=== PATIENT | female | born 1945 | race Caucasian/White ===

== ENCOUNTER 2020-08-05 14:14 | Observation (INO) | payer MEDICARE, MEDICAID ==
--- NOTE | 2020-08-05 14:19 | EDM.PDOC ---
ED HPI GENERAL MEDICAL PROBLEM - General Time Seen by Provider: 08/05/20 14:19 Source of Information: Reports: Provider, Other (residential staff member.) History Limitations: Reports: Altered Mental Status (Patient with mental retardation and dementia but also is less responsive and interactive. She cannot provide me with any history.) - History of Present Illness INITIAL COMMENTS - FREE TEXT/NARRATIVE: 74-year-old female who was her usual active and interactive self yesterday with eating and drinking normally, walking normally and interacting with staff normally. Apparently this morning when they got her up to go to breakfast she was more unsteady with her gait which is not too unusual in that she does this on some mornings but then it quickly resolves today did not resolve and she seemed to be less interactive and more flat in her responses. She was able to eat breakfast but had trouble doing so but was able to swallow normally. She continued with the unsteadiness and she was drooping over in her chair which is very unusual for her and did not want to sit up straight. She also was the same for lunch and seemed to be picking at things that were not there as well. She had a telephone visit with Dr. Goncalves and it was felt that the patient needed to come to the emergency department for evaluation. Upon staff, the patient also seemed to be more weak on her left side than her right and she seemed to be sagging over to the left side as well. He seemed to be more sleepy and less verbally responsive and interactive as well. She had denied any pain and denies any pain to me at present. She is on baseline status incontinent of urine. She has had no nasal congestion. She has had no fever or chills noted. She has had a slight cough but this is also chronic. No known exposure to anybody with COVID 19. No known history of trauma. This is all the history that I can obtain. There are no other associated signs or symptoms. There are no other modifying factors. Onset: Today (Upon awakening this morning) Duration: Getting Worse Location: Reports: Other (No pain reported.) Quality: Reports: Other (Not applicable) Improves with: Reports: None Worsens with: Reports: None Context: Reports: Other (As above) Associated Symptoms: Reports: No Other Symptoms (Except as above) Treatments MANAGER GYN: Reports: Other (see below) (Nothing.) - Related Data Allergies Allergy/AdvReac Type Severity Reaction Status Date / Time No Known Allergies Allergy Verified 05/16/18 09:32 Home Meds: Home Meds Acetaminophen [Tylenol Arthritis Pain] 1 tab PO TID 08/05/20 [History] Aspirin [Halfprin] 1 tab PO DAILY 08/05/20 [History] Cholecalciferol (Vitamin D3) [Vitamin D3] 1,000 unit PO DAILY 08/05/20 [History] Donepezil HCl 10 mg PO BEDTIME 08/05/20 [History] Escitalopram Oxalate 5 mg PO DAILY 08/05/20 [History] Memantine HCl [Namenda Xr] 1 cap PO DAILY 08/05/20 [History] Mirtazapine 45 mg PO BEDTIME 08/05/20 [History] Multivits w-Fe,Other Min/Lut [Theratrum Complete] 1 tab PO DAILY 08/05/20 [History] atorvaSTATin [Lipitor] 20 mg PO DAILY 08/05/20 [History] Past Medical History Cardiovascular History: Reports: Heart Valve Replacement (Status post TVAR), High Cholesterol, Hypertension Genitourinary History: Reports: Urinary Incontinence Psychiatric History: Reports: Anxiety, Dementia, Depression, Other (See Below) (Mental retardation) Endocrine/Metabolic History: Reports: Obesity/BMI 30+ - Past Surgical History Cardiovascular Surgical History: Reports: Valve Replacement (TVAR) Social & Family History - Tobacco Use Tobacco Use Status *Q: Never Tobacco User - Alcohol Use Alcohol Use History: No - Living Situation & Occupation Living situation: Reports: Other (In prison area) Occupation: Disabled ED ROS GENERAL - Review of Systems Review Of Systems: Unable To Obtain (The patient is unable to give us this information secondary to her retardation.) Reason Not Obtained: Patient with mental retardation ED EXAM, NEURO - Physical Exam Exam: See Below Exam Limited By: No Limitations General Appearance: Lethargic (Awaken and respond but respond and less animated), Mild Distress (No respiratory distress.), Obese Eye Exam: Bilateral Eye: EOMI, Normal Inspection Ears: Normal External Exam, Hearing Grossly Normal Nose: No Blood, Nasal Drainage Throat/Mouth: Normal Voice, No Airway Compromise, Other (Dry mucous membranes) Head Exam: Atraumatic, Normocephalic Neck: Normal Inspection, Supple, Non-Tender, Full Range of Motion Respiratory/Chest: No Respiratory Distress, Normal Breath Sounds, No Accessory Muscle Use, Chest Non-Tender, Rhonchi (Some rhonchi scattered throughout) Cardiovascular: Normal Peripheral Pulses, Regular Rate, Rhythm, No Gallop GI/Abdominal: Normal Bowel Sounds, Soft, Non-Tender, No Mass, Other (Somewhat protuberant) Neurological: CN II-XII Intact, No Motor/Sensory Deficits, Difficulty Walking, Other (Slow to respond. Less animated. Does seem to move her arms and legs symmetrically.) Back Exam: Normal Inspection Extremities: Normal Inspection, Normal Range of Motion, Non-Tender, Normal Capillary Refill Skin Exam: Warm, Dry, Intact, Normal Color #1 Interpretation EKG Date: 08/05/20 Time: 16:02 Rhythm: NSR Rate (Beats/Min): 74 [place]: Normal P-Wave: Present QRS: Normal ST-T: Other (Nonspecific ST-T changes) QT: Prolonged (Prolonged QTc.) Comparison: NA - No Prior EKG Course - Orders/Labs/Meds Orders: Active Orders 24 hr Category Date Time Status Patient Status Manage Transfer [TRANSFER] Routine ADT 08/05/20 19:20 Active Patient Status [ADT] Routine ADT 08/05/20 19:16 Active Ambulate [RC] PER UNIT ROUTINE Care 08/05/20 19:18 Active EKG Documentation Completion [RC] ASDIRECTED Care 08/05/20 15:05 Active Insert Urinary Catheter [OM.PC] Q24H Care 08/05/20 15:00 Ordered Intake and Output [RC] QSHIFT Care 08/05/20 19:17 Active Oxygen Therapy [RC] PRN Care 08/05/20 19:16 Active Pulse Oximetry [RC] CONTINUOUS Care 08/05/20 19:17 Active Up With Assistance [RC] ASDIRECTED Care 08/05/20 19:16 Active Urinary Catheter Assessment [RC] QSHIFT Care 08/05/20 15:05 Active VTE/DVT Education [RC] Per Unit Routine Care 08/05/20 19:16 Active Vital Signs [RC] Q4H Care 08/05/20 19:16 Active Regular Diet [DIET] Diet 08/05/20 Dinner Ordered Chest 1V Frontal [CR] Stat Exams 08/05/20 15:00 Taken Head wo Cont [CT] Stat Exams 08/05/20 14:18 Taken BASIC METABOLIC PANEL,BMP [CHEM] AM Lab 08/06/20 05:11 Ordered CBC WITH AUTO DIFF [HEME] AM Lab 08/06/20 05:11 Ordered CULTURE BLOOD [BC] Urgent Lab 08/05/20 15:40 Received CULTURE URINE [RM] Stat Lab 08/05/20 15:50 Received Acetaminophen [TylenoL] Med 08/05/20 19:16 Active 650 mg PO Q4H PRN Ondansetron [Zofran] Med 08/05/20 19:16 Active 4 mg IV Q6H PRN Sodium Chloride 0.9% [Normal Saline] 1,000 ml Med 08/05/20 15:15 Active IV ASDIRECTED Sodium Chloride 0.9% [Saline Flush] Med 08/05/20 15:00 Active 10 ml FLUSH ASDIRECTED PRN Blood Culture x2 Reflex Set [OM.PC] Urgent Oth 08/05/20 15:00 Ordered Peripheral IV Insertion Adult [OM.PC] Routine Oth 08/05/20 15:00 Ordered Resuscitation Status Routine Resus Stat 08/05/20 19:16 Ordered EKG 12 Lead [EK] Routine Ther 08/05/20 15:00 Ordered Medication Orders Acetaminophen (Tylenol) 650 mg PO Q4H PRN PRN Reason: Pain (Mild 1-3)/fever Sodium Chloride (Normal Saline) 1,000 mls @ 100 mls/hr IV ASDIRECTED RENE Last Admin: 08/05/20 18:46 Dose: 100 mls/hr Documented by: TIFFANI Ondansetron HCl (Zofran) 4 mg IV Q6H PRN PRN Reason: Nausea/Vomiting Sodium Chloride (Saline Flush) 10 ml FLUSH ASDIRECTED PRN PRN Reason: Keep Vein Open Labs: Laboratory Tests 08/05/20 08/05/20 08/05/20 Range/Units 15:40 15:40 15:40 WBC 5.2 (3.0-10.3) x10-3/uL RBC 4.15 (3.60-5.20) x10(6)uL Hgb 12.8 (11.4-15.5) g/dL Hct 39.0 (34.2-48.2) % MCV 94.0 (76.7-100.5) fL MCH 30.9 (23.9-33.9) pg MCHC 32.8 (31.9-34.8) g/dL RDW 12.8 (12.3-16.5) % Plt Count 149 L (151-488) x10(3)uL MPV 8.3 (7.1-12.4) fL Neut % (Auto) 74.8 (30.8-76.2) % Lymph % (Auto) 11.3 L (18.4-52.1) % [place] % (Auto) 12.9 (4.4-15.7) % Eos % (Auto) 0.1 L (0.6-8.1) % Baso % (Auto) 0.9 (0.2-1.5) % Neut # (Auto) 3.9 (1.5-6.3) x10-3/uL Lymph # (Auto) 0.6 L (1.0-4.4) x10-3/uL [place] # (Auto) 0.7 (0.3-1.0) x10-3/uL Eos # (Auto) 0.0 (0.0-0.8) x10-3/uL Baso # (Auto) 0.0 (0.0-0.1) x10-3/uL POC VBG pH (7.32-7.43) pH Units POC VBG pCO2 (41-51) mmHg POC VBG HCO3 (21-29) mmol/L VBG Base Excess (-2-3) mmol/L O2 Delivery Device Sodium 135 (135-145) mmol/L Potassium 4.4 (3.5-5.3) mmol/L Chloride 97 L (100-110) mmol/L Carbon Dioxide 30 (21-32) mmol/L BUN 30 H (7-18) mg/dL Creatinine 1.2 H (0.55-1.02) mg/dL Est Cr Clr Drug Dosing TNP Estimated GFR (MDRD) 44 L (>60) BUN/Creatinine Ratio 25.0 H (9-20) Glucose 108 (80-116) mg/dL Lactic Acid (0.4-2.0) mmol/L Calcium 8.9 (8.6-10.2) mg/dL Magnesium 1.8 (1.8-2.5) mg/dL Total Bilirubin 0.2 (0.1-1.3) mg/dL AST 46 H (5-25) IU/L ALT 70 H (12-36) U/L Alkaline Phosphatase 97 (56-112) IU/L Troponin I 11.4 (4.0-60.3) pg/mL C-Reactive Protein 1.9 H (0.5-0.9) mg/dL Total Protein 7.3 (6.0-8.0) g/dL Albumin 3.2 (3.2-4.6) g/dL Globulin 4.1 g/dL Albumin/Globulin Ratio 0.8 Urine Color (YELLOW) Urine Appearance (CLEAR) Urine pH (5.0-6.5) Ur Specific [place] (1.010-1.025) Urine Protein (NEGATIVE) mg/dL Urine Glucose (UA) (NORMAL) mg/dL Urine Ketones (NEGATIVE) mg/dL Urine Occult Blood (NEGATIVE) Urine Nitrite (NEGATIVE) Urine Bilirubin (NEGATIVE) Urine Urobilinogen (NEGATIVE) mg/dL Ur Leukocyte Esterase (NEGATIVE) Urine RBC (0-5) Urine WBC (0-5) Ur Squamous Epith Cells (NS,R,O) Urine Bacteria (NS) SARS-CoV-2 RNA (HAROON) (NEGATIVE) 08/05/20 08/05/20 08/05/20 Range/Units 15:40 15:40 15:50 WBC (3.0-10.3) x10-3/uL RBC (3.60-5.20) x10(6)uL Hgb (11.4-15.5) g/dL Hct (34.2-48.2) % MCV (76.7-100.5) fL MCH (23.9-33.9) pg MCHC (31.9-34.8) g/dL RDW (12.3-16.5) % Plt Count (151-488) x10(3)uL MPV (7.1-12.4) fL Neut % (Auto) (30.8-76.2) % Lymph % (Auto) (18.4-52.1) % [place] % (Auto) (4.4-15.7) % Eos % (Auto) (0.6-8.1) % Baso % (Auto) (0.2-1.5) % Neut # (Auto) (1.5-6.3) x10-3/uL Lymph # (Auto) (1.0-4.4) x10-3/uL [place] # (Auto) (0.3-1.0) x10-3/uL Eos # (Auto) (0.0-0.8) x10-3/uL Baso # (Auto) (0.0-0.1) x10-3/uL POC VBG pH 7.37 (7.32-7.43) pH Units POC VBG pCO2 47 (41-51) mmHg POC VBG HCO3 27 (21-29) mmol/L VBG Base Excess 2 (-2-3) mmol/L O2 Delivery Device Room air Sodium (135-145) mmol/L Potassium (3.5-5.3) mmol/L Chloride (100-110) mmol/L Carbon Dioxide (21-32) mmol/L BUN (7-18) mg/dL Creatinine (0.55-1.02) mg/dL Est Cr Clr Drug Dosing Estimated GFR (MDRD) (>60) BUN/Creatinine Ratio (9-20) Glucose (80-116) mg/dL Lactic Acid 1.3 (0.4-2.0) mmol/L Calcium (8.6-10.2) mg/dL Magnesium (1.8-2.5) mg/dL Total Bilirubin (0.1-1.3) mg/dL AST (5-25) IU/L ALT (12-36) U/L Alkaline Phosphatase (56-112) IU/L Troponin I (4.0-60.3) pg/mL C-Reactive Protein (0.5-0.9) mg/dL Total Protein (6.0-8.0) g/dL Albumin (3.2-4.6) g/dL Globulin g/dL Albumin/Globulin Ratio Urine Color Yellow (YELLOW) Urine Appearance Clear (CLEAR) Urine pH 5.0 (5.0-6.5) Ur Specific [place] 1.015 (1.010-1.025) Urine Protein Negative (NEGATIVE) mg/dL Urine Glucose (UA) Normal (NORMAL) mg/dL Urine Ketones Negative (NEGATIVE) mg/dL Urine Occult Blood Moderate H (NEGATIVE) Urine Nitrite Negative (NEGATIVE) Urine Bilirubin Negative (NEGATIVE) Urine Urobilinogen Normal (NEGATIVE) mg/dL Ur Leukocyte Esterase Negative (NEGATIVE) Urine RBC 5-10 H (0-5) Urine WBC 0-5 (0-5) Ur Squamous Epith Cells Rare (NS,R,O) Urine Bacteria Few H (NS) SARS-CoV-2 RNA (HAROON) (NEGATIVE) 08/05/20 Range/Units 17:15 WBC (3.0-10.3) x10-3/uL RBC (3.60-5.20) x10(6)uL Hgb (11.4-15.5) g/dL Hct (34.2-48.2) % MCV (76.7-100.5) fL MCH (23.9-33.9) pg MCHC (31.9-34.8) g/dL RDW (12.3-16.5) % Plt Count (151-488) x10(3)uL MPV (7.1-12.4) fL Neut % (Auto) (30.8-76.2) % Lymph % (Auto) (18.4-52.1) % [place] % (Auto) (4.4-15.7) % Eos % (Auto) (0.6-8.1) % Baso % (Auto) (0.2-1.5) % Neut # (Auto) (1.5-6.3) x10-3/uL Lymph # (Auto) (1.0-4.4) x10-3/uL [place] # (Auto) (0.3-1.0) x10-3/uL Eos # (Auto) (0.0-0.8) x10-3/uL Baso # (Auto) (0.0-0.1) x10-3/uL POC VBG pH (7.32-7.43) pH Units POC VBG pCO2 (41-51) mmHg POC VBG HCO3 (21-29) mmol/L VBG Base Excess (-2-3) mmol/L O2 Delivery Device Sodium (135-145) mmol/L Potassium (3.5-5.3) mmol/L Chloride (100-110) mmol/L Carbon Dioxide (21-32) mmol/L BUN (7-18) mg/dL Creatinine (0.55-1.02) mg/dL Est Cr Clr Drug Dosing Estimated GFR (MDRD) (>60) BUN/Creatinine Ratio (9-20) Glucose (80-116) mg/dL Lactic Acid (0.4-2.0) mmol/L Calcium (8.6-10.2) mg/dL Magnesium (1.8-2.5) mg/dL Total Bilirubin (0.1-1.3) mg/dL AST (5-25) IU/L ALT (12-36) U/L Alkaline Phosphatase (56-112) IU/L Troponin I (4.0-60.3) pg/mL C-Reactive Protein (0.5-0.9) mg/dL Total Protein (6.0-8.0) g/dL Albumin (3.2-4.6) g/dL Globulin g/dL Albumin/Globulin Ratio Urine Color (YELLOW) Urine Appearance (CLEAR) Urine pH (5.0-6.5) Ur Specific [place] (1.010-1.025) Urine Protein (NEGATIVE) mg/dL Urine Glucose (UA) (NORMAL) mg/dL Urine Ketones (NEGATIVE) mg/dL Urine Occult Blood (NEGATIVE) Urine Nitrite (NEGATIVE) Urine Bilirubin (NEGATIVE) Urine Urobilinogen (NEGATIVE) mg/dL Ur Leukocyte Esterase (NEGATIVE) Urine RBC (0-5) Urine WBC (0-5) Ur Squamous Epith Cells (NS,R,O) Urine Bacteria (NS) SARS-CoV-2 RNA (HAROON) Positive H (NEGATIVE) Meds: Medications Generic Name Dose Route Start Last Admin Trade Name Freq PRN Reason Stop Dose Admin Acetaminophen 650 mg 08/05/20 19:16 Tylenol PO Q4H PRN Pain (Mild 1-3)/fever Sodium Chloride 1,000 mls @ 100 mls/hr 08/05/20 15:15 08/05/20 18:46 Normal Saline IV 100 mls/hr ASDIRECTED RENE Administration Ondansetron HCl 4 mg 08/05/20 19:16 Zofran IV Q6H PRN Nausea/Vomiting Sodium Chloride 10 ml 08/05/20 15:00 Saline Flush FLUSH ASDIRECTED PRN Keep Vein Open Discontinued Medications Generic Name Dose Route Start Last Admin Trade Name Freq PRN Reason Stop Dose Admin Sodium Chloride 500 mls @ 999 mls/hr 08/05/20 15:07 08/05/20 17:15 Normal Saline IV 08/05/20 15:37 999 mls/hr .BOLUS ONE Administration - Radiology Interpretation Free Text/Narrative:: Portable chest x-ray shows possible right bilaterally with right greater than left. CT scan of head showed no acute abnormality. This was per the radiologist. - Re-Assessments/Exams Free Text/Narrative Re-Assessment/Exam: 08/05/20 15:30: The patient's blood tests are reassuring. She does appear to be somewhat dehydrated. The CT scan of her head shows no evidence of stroke or bleeding. The chest x-ray does show some bilateral infiltrates. The Covid 19 test is not back yet. They have not been able to establish an IV and she had as well. The EKG is still pending as well. The patient does appear to be somewhat dehydrated and the nursing staff his attempting to start an IV. The patient remains quite lethargic and non-animated. She still does not have any focal findings on my exam. Even with the negative head CT, I am somewhat concerned about a potential stroke not visualized on the CT scan. 08/05/20 16:40: We will have to get anesthesia to attempt to start an IV. The COVID test is still pending. Her urinalysis shows no evidence of infection. EKG showed no injury pattern. I did discuss the patient's case with Dr. Perdomo and he would be agreeable to admitting the patient. The patient is a DNR. No agg ressive measures would be warranted. I discussed this with the prison staff and she would be agreeable to this. 08/05/20 18:00: The patient has received a liter bolus of IV fluids and she is much more animated. She is moving all 4 extremities well. She is able to emulate to the bathroom. She has eaten some Jell-O without any problems and is loudly asking for more. She still is somewhat weak and required assistance. We are still awaiting the Covid test. 08/05/20 19:00: Her COVID 19 test is positive. She remains a normal O2 saturation and stable vital signs. The prison staff tells me that they would not be able to take the patient back tonight. The patient does appear to be dehydrated and I think would benefit from IV fluid hydration. I will admit the patient as an observation for this. She still had the strokelike symptoms which have appeared to resolve and will need to be observed for this as well. I will place admission orders and Dr. Perdomo will send care the patient at 7 AM on 08/06/2020. Departure - Departure Time of Disposition: 19:16 Disposition: Refer to Observation Condition: Fair (Stable) Clinical Impression: Stroke-like symptoms, Dehydration, moderate, Pneumonia due to COVID-19 virus - Discharge Information Referrals: PCP,None [Ordering Only Provider] - - My Orders Last 24 Hours: My Active Orders 08/05/20 14:18 Head wo Cont [CT] Stat 08/05/20 15:00 Insert Urinary Catheter [OM.PC] Q24H Chest 1V Frontal [CR] Stat Sodium Chloride 0.9% [Saline Flush] 10 ml FLUSH ASDIRECTED PRN Blood Culture x2 Reflex Set [OM.PC] Urgent Peripheral IV Insertion Adult [OM.PC] Routine EKG 12 Lead [EK] Routine 08/05/20 15:05 EKG Documentation Completion [RC] ASDIRECTED Urinary Catheter Assessment [RC] QSHIFT 08/05/20 15:15 Sodium Chloride 0.9% [Normal Saline] 1,000 ml IV ASDIRECTED 08/05/20 15:40 CULTURE BLOOD [BC] Urgent 08/05/20 15:50 CULTURE URINE [RM] Stat 08/05/20 Dinner Regular Diet [DIET] 08/05/20 19:16 Patient Status [ADT] Routine Oxygen Therapy [RC] PRN Up With Assistance [RC] ASDIRECTED VTE/DVT Education [RC] Per Unit Routine Vital Signs [RC] Q4H Acetaminophen [TylenoL] 650 mg PO Q4H PRN Ondansetron [Zofran] 4 mg IV Q6H PRN Resuscitation Status Routine 08/05/20 19:17 Intake and Output [RC] QSHIFT Pulse Oximetry [RC] CONTINUOUS 08/05/20 19:18 Ambulate [RC] PER UNIT ROUTINE 08/05/20 19:20 Patient Status Manage Transfer [TRANSFER] Routine 08/06/20 05:11 BASIC METABOLIC PANEL,BMP [CHEM] AM CBC WITH AUTO DIFF [HEME] AM - Assessment/Plan Last 24 Hours: My Active Orders 08/05/20 14:18 Head wo Cont [CT] Stat 08/05/20 15:00 Insert Urinary Catheter [OM.PC] Q24H Chest 1V Frontal [CR] Stat Sodium Chloride 0.9% [Saline Flush] 10 ml FLUSH ASDIRECTED PRN Blood Culture x2 Reflex Set [OM.PC] Urgent Peripheral IV Insertion Adult [OM.PC] Routine EKG 12 Lead [EK] Routine 08/05/20 15:05 EKG Documentation Completion [RC] ASDIRECTED Urinary Catheter Assessment [RC] QSHIFT 08/05/20 15:15 Sodium Chloride 0.9% [Normal Saline] 1,000 ml IV ASDIRECTED 08/05/20 15:40 CULTURE BLOOD [BC] Urgent 08/05/20 15:50 CULTURE URINE [RM] Stat 08/05/20 Dinner Regular Diet [DIET] 08/05/20 19:16 Patient Status [ADT] Routine Oxygen Therapy [RC] PRN Up With Assistance [RC] ASDIRECTED VTE/DVT Education [RC] Per Unit Routine Vital Signs [RC] Q4H Acetaminophen [TylenoL] 650 mg PO Q4H PRN Ondansetron [Zofran] 4 mg IV Q6H PRN Resuscitation Status Routine 08/05/20 19:17 Intake and Output [RC] QSHIFT Pulse Oximetry [RC] CONTINUOUS 08/05/20 19:18 Ambulate [RC] PER UNIT ROUTINE 08/05/20 19:20 Patient Status Manage Transfer [TRANSFER] Routine 08/06/20 05:11 BASIC METABOLIC PANEL,BMP [CHEM] AM CBC WITH AUTO DIFF [HEME] AM
[2020-08-05] MEDS ORDERED: Sodium Chloride 0.9% 10 ML Syringe FLUSH PRN (15:00)
[2020-08-05] MEDS ORDERED: Sodium Chloride 0.9% 500 ML IV ONE (15:07)
[2020-08-05 16:02] LABS: BASE EXCESS VENOUS,POC 2 mmol/L (-2-3); HCO3 VENOUS,POC 27 mmol/L (21-29); PCO2 VENOUS,POC 47 mmHg (41-51); PH VENOUS,POC 7.37 pH Units (7.32-7.43)
--- NOTE | 2020-08-05 17:03 | PCM.SN.2 ---
- Free Text/Narrative Note: Was called to ER to start an IV on a patient who has had multiple attempts without success. After two attempts an IV was started in her right hand and this was with a 22 jelco. IV flushed well with 20cc's of saline. IV was secured well.
[2020-08-05] MEDS: Sodium Chloride 0.9% 1,000 ML IV SCH (18:46)
[2020-08-05] MEDS ORDERED: Acetaminophen 325 MG Tab PO PRN (19:16)
[2020-08-05] MEDS ORDERED: Ondansetron 4 MG/2 ML SDV IV PRN (19:16)
[2020-08-06] MEDS: Sodium Chloride 0.9% 1,000 ML IV SCH (06:15)
[2020-08-06] MEDS ORDERED: BUDESONIDE 3 MG PO SCH (09:00)
[2020-08-06] MEDS ORDERED: Aspirin 81 MG Tab.EC *PTOM PO SCH (09:00)
[2020-08-06] MEDS ORDERED: Multivitamin Tab *PTOM PO SCH (09:00)
[2020-08-06] MEDS ORDERED: Cholecalciferol (Vitamin D3) 25 MCG Tab *PTOM PO SCH (09:00)
[2020-08-06] MEDS ORDERED: atorvaSTATin 20 MG Tab *PTOM PO SCH (09:00)
[2020-08-06] MEDS ORDERED: MEMANTINE HCL 21 MG PO SCH (09:00)
[2020-08-06] MEDS ORDERED: FERROUS SULFATE 160 MG PO SCH (09:00)
[2020-08-06] MEDS ORDERED: DEXTROSE PO PRN (09:17)
[2020-08-06] MEDS ORDERED: diphenhydrAMINE 25 MG Cap PO PRN (09:17)
[2020-08-06] MEDS ORDERED: [UNRECOGNIZED DRUG - OTHER] PO PRN (09:17)
[2020-08-06] MEDS ORDERED: [UNRECOGNIZED DRUG - OTHER] PO PRN (09:17)
[2020-08-06] MEDS ORDERED: QUEtiapine 25 MG Tab PO PRN (09:17)
[2020-08-06] MEDS ORDERED: Acetaminophen 650 MG Tab.ER *PTOM PO PRN (09:17)
--- NOTE | 2020-08-06 09:24 | PCM.HP.2 ---
H&P History of Present Illness - General Date of Service: 08/06/20 Admit Problem/Dx: Admission Diagnosis/Problem Admission Diagnosis/Problem Dehydration Source of Information: Old Records, Provider, RN History Limitations: Reports: Altered Mental Status - History of Present Illness Initial Comments - Free Text/Narative: Isabella was brought from a local halfway due to generalized weakness of sudden onset.She has Mental Delay,but is usually interactive and independent,. Was noted to need support,decreased interaction and less appetite. At the ED,mild dehydration was entertained,but was found to have COVID 19.Curiously,she didn't exhibit any respiratory symptoms of fever. - Related Data Allergies/Adverse Reactions: Allergies Allergy/AdvReac Type Severity Reaction Status Date / Time No Known Allergies Allergy Verified 05/16/18 09:32 Home Medications: Home Meds Aspirin [Halfprin] 81 mg PO DAILY 08/05/20 [History] Cholecalciferol (Vitamin D3) [Vitamin D3] 1,000 unit PO DAILY 08/05/20 [History] Donepezil HCl 10 mg PO BEDTIME 08/05/20 [History] Escitalopram Oxalate 5 mg PO DAILY 08/05/20 [History] Memantine HCl [Namenda Xr] 21 mg PO DAILY 08/05/20 [History] Mirtazapine 45 mg PO BEDTIME 08/05/20 [History] Multivits w-Fe,Other Min/Lut [Theratrum Complete] 1 tab PO DAILY 08/05/20 [Histo ry] atorvaSTATin [Lipitor] 20 mg PO DAILY 08/05/20 [History] Acetaminophen [Acetaminophen ER] 650 mg PO Q8H PRN 08/06/20 [History] Budesonide [Budesonide EC] 9 mg PO DAILY 08/06/20 [History] Chlorpheniramine/Dextromethorp [Coricidin Hbp Cough & Cold] 1 each PO Q6H PRN 08/06/20 [History] Dextrose [Glucose] 8 gm PO ASDIRECTED PRN 08/06/20 [History] Ferrous Sulfate [Slow Release Iron] 160 mg PO DAILY 08/06/20 [History] QUEtiapine [SEROquel] 6.25 mg PO DAILY PRN 08/06/20 [History] diphenhydrAMINE [Benadryl] 50 mg PO Q6H PRN 08/06/20 [History] lisinopriL [Lisinopril] 2.5 mg PO BEDTIME 08/06/20 [History] polyethylene glycoL 3350 [Gavilax] 17 gm PO DAILY 08/06/20 [History] Past Medical History HEENT History: Reports: Cataract Cardiovascular History: Reports: Heart Valve Replacement, High Cholesterol, Hypertension Genitourinary History: Reports: Urinary Incontinence Neurological History: Reports: Other (See Below) Other Neuro History: mild mental retardation Psychiatric History: Reports: Anxiety, Dementia, Depression, Other (See Below) Endocrine/Metabolic History: Reports: Obesity/BMI 30+ - Past Surgical History Cardiovascular Surgical History: Reports: Valve Replacement Other Musculoskeletal Surgeries/Procedures:: knee surgery to left knee and now unable to bend Social & Family History - Family History Family Medical History: No Pertinent Family History - Tobacco Use Tobacco Use Status *Q: Never Tobacco User - Caffeine Use Caffeine Use: Reports: None - Recreational Drug Use Recreational Drug Use: No - Living Situation & Occupation Living situation: Reports: Other (In halfway area) Occupation: Disabled H&P Review of Systems - Review of Systems: Review Of Systems: Comprehensive ROS is negative, except as noted in HPI. Exam - Exam Exam: See Below - Vital Signs Vital Signs: Last Vital Signs Temp 98.3 F 08/06/20 07:49 Pulse 76 08/06/20 07:49 Resp 20 08/06/20 07:49 BP 157/82 H 08/06/20 07:49 Pulse Ox 99 08/06/20 07:49 Weight: 79.52 kg - Exam General: Alert HEENT: PERRLA Lungs: Crackles Cardiovascular: Regular Rate GI/Abdominal Exam: Normal Bowel Sounds, Soft Extremities: Normal Inspection, No Pedal Edema Neurological: Cranial Nerves Intact Neuro Extensive - Mental Status: Alert Psychiatric: Alert - Patient Data Lab Results Last 24 hrs: Laboratory Results - last 24 hr 08/05/20 08/05/20 08/05/20 Range/Units 15:40 15:40 15:40 WBC 5.2 (3.0-10.3) x10-3/uL RBC 4.15 (3.60-5.20) x10(6)uL Hgb 12.8 (11.4-15.5) g/dL Hct 39.0 (34.2-48.2) % MCV 94.0 (76.7-100.5) fL MCH 30.9 (23.9-33.9) pg MCHC 32.8 (31.9-34.8) g/dL RDW 12.8 (12.3-16.5) % Plt Count 149 L (151-488) x10(3)uL MPV 8.3 (7.1-12.4) fL Neut % (Auto) 74.8 (30.8-76.2) % Lymph % (Auto) 11.3 L (18.4-52.1) % Luce % (Auto) 12.9 (4.4-15.7) % Eos % (Auto) 0.1 L (0.6-8.1) % Baso % (Auto) 0.9 (0.2-1.5) % Neut # (Auto) 3.9 (1.5-6.3) x10-3/uL Lymph # (Auto) 0.6 L (1.0-4.4) x10-3/uL Luce # (Auto) 0.7 (0.3-1.0) x10-3/uL Eos # (Auto) 0.0 (0.0-0.8) x10-3/uL Baso # (Auto) 0.0 (0.0-0.1) x10-3/uL POC VBG pH (7.32-7.43) pH Units POC VBG pCO2 (41-51) mmHg POC VBG HCO3 (21-29) mmol/L VBG Base Excess (-2-3) mmol/L O2 Delivery Device Sodium 135 (135-145) mmol/L Potassium 4.4 (3.5-5.3) mmol/L Chloride 97 L (100-110) mmol/L Carbon Dioxide 30 (21-32) mmol/L BUN 30 H (7-18) mg/dL Creatinine 1.2 H (0.55-1.02) mg/dL Est Cr Clr Drug Dosing TNP Estimated GFR (MDRD) 44 L (>60) BUN/Creatinine Ratio 25.0 H (9-20) Glucose 108 (80-116) mg/dL Lactic Acid (0.4-2.0) mmol/L Calcium 8.9 (8.6-10.2) mg/dL Magnesium 1.8 (1.8-2.5) mg/dL Total Bilirubin 0.2 (0.1-1.3) mg/dL AST 46 H (5-25) IU/L ALT 70 H (12-36) U/L Alkaline Phosphatase 97 (56-112) IU/L Troponin I 11.4 (4.0-60.3) pg/mL C-Reactive Protein 1.9 H (0.5-0.9) mg/dL Total Protein 7.3 (6.0-8.0) g/dL Albumin 3.2 (3.2-4.6) g/dL Globulin 4.1 g/dL Albumin/Globulin Ratio 0.8 Urine Color (YELLOW) Urine Appearance (CLEAR) Urine pH (5.0-6.5) Ur Specific [place] (1.010-1.025) Urine Protein (NEGATIVE) mg/dL Urine Glucose (UA) (NORMAL) mg/dL Urine Ketones (NEGATIVE) mg/dL Urine Occult Blood (NEGATIVE) Urine Nitrite (NEGATIVE) Urine Bilirubin (NEGATIVE) Urine Urobilinogen (NEGATIVE) mg/dL Ur Leukocyte Esterase (NEGATIVE) Urine RBC (0-5) Urine WBC (0-5) Ur Squamous Epith Cells (NS,R,O) Urine Bacteria (NS) SARS-CoV-2 RNA (HAROON) (NEGATIVE) 08/05/20 08/05/20 08/05/20 Range/Units 15:40 15:40 15:50 WBC (3.0-10.3) x10-3/uL RBC (3.60-5.20) x10(6)uL Hgb (11.4-15.5) g/dL Hct (34.2-48.2) % MCV (76.7-100.5) fL MCH (23.9-33.9) pg MCHC (31.9-34.8) g/dL RDW (12.3-16.5) % Plt Count (151-488) x10(3)uL MPV (7.1-12.4) fL Neut % (Auto) (30.8-76.2) % Lymph % (Auto) (18.4-52.1) % Luce % (Auto) (4.4-15.7) % Eos % (Auto) (0.6-8.1) % Baso % (Auto) (0.2-1.5) % Neut # (Auto) (1.5-6.3) x10-3/uL Lymph # (Auto) (1.0-4.4) x10-3/uL Luce # (Auto) (0.3-1.0) x10-3/uL Eos # (Auto) (0.0-0.8) x10-3/uL Baso # (Auto) (0.0-0.1) x10-3/uL POC VBG pH 7.37 (7.32-7.43) pH Units POC VBG pCO2 47 (41-51) mmHg POC VBG HCO3 27 (21-29) mmol/L VBG Base Excess 2 (-2-3) mmol/L O2 Delivery Device Room air Sodium (135-145) mmol/L Potassium (3.5-5.3) mmol/L Chloride (100-110) mmol/L Carbon Dioxide (21-32) mmol/L BUN (7-18) mg/dL Creatinine (0.55-1.02) mg/dL Est Cr Clr Drug Dosing Estimated GFR (MDRD) (>60) BUN/Creatinine Ratio (9-20) Glucose (80-116) mg/dL Lactic Acid 1.3 (0.4-2.0) mmol/L Calcium (8.6-10.2) mg/dL Magnesium (1.8-2.5) mg/dL Total Bilirubin (0.1-1.3) mg/dL AST (5-25) IU/L ALT (12-36) U/L Alkaline Phosphatase (56-112) IU/L Troponin I (4.0-60.3) pg/mL C-Reactive Protein (0.5-0.9) mg/dL Total Protein (6.0-8.0) g/dL Albumin (3.2-4.6) g/dL Globulin g/dL Albumin/Globulin Ratio Urine Color Yellow (YELLOW) Urine Appearance Clear (CLEAR) Urine pH 5.0 (5.0-6.5) Ur Specific [place] 1.015 (1.010-1.025) Urine Protein Negative (NEGATIVE) mg/dL Urine Glucose (UA) Normal (NORMAL) mg/dL Urine Ketones Negative (NEGATIVE) mg/dL Urine Occult Blood Moderate H (NEGATIVE) Urine Nitrite Negative (NEGATIVE) Urine Bilirubin Negative (NEGATIVE) Urine Urobilinogen Normal (NEGATIVE) mg/dL Ur Leukocyte Esterase Negative (NEGATIVE) Urine RBC 5-10 H (0-5) Urine WBC 0-5 (0-5) Ur Squamous Epith Cells Rare (NS,R,O) Urine Bacteria Few H (NS) SARS-CoV-2 RNA (HAROON) (NEGATIVE) 08/05/20 Range/Units 17:15 WBC (3.0-10.3) x10-3/uL RBC (3.60-5.20) x10(6)uL Hgb (11.4-15.5) g/dL Hct (34.2-48.2) % MCV (76.7-100.5) fL MCH (23.9-33.9) pg MCHC (31.9-34.8) g/dL RDW (12.3-16.5) % Plt Count (151-488) x10(3)uL MPV (7.1-12.4) fL Neut % (Auto) (30.8-76.2) % Lymph % (Auto) (18.4-52.1) % Luce % (Auto) (4.4-15.7) % Eos % (Auto) (0.6-8.1) % Baso % (Auto) (0.2-1.5) % Neut # (Auto) (1.5-6.3) x10-3/uL Lymph # (Auto) (1.0-4.4) x10-3/uL Luce # (Auto) (0.3-1.0) x10-3/uL Eos # (Auto) (0.0-0.8) x10-3/uL Baso # (Auto) (0.0-0.1) x10-3/uL POC VBG pH (7.32-7.43) pH Units POC VBG pCO2 (41-51) mmHg POC VBG HCO3 (21-29) mmol/L VBG Base Excess (-2-3) mmol/L O2 Delivery Device Sodium (135-145) mmol/L Potassium (3.5-5.3) mmol/L Chloride (100-110) mmol/L Carbon Dioxide (21-32) mmol/L BUN (7-18) mg/dL Creatinine (0.55-1.02) mg/dL Est Cr Clr Drug Dosing Estimated GFR (MDRD) (>60) BUN/Creatinine Ratio (9-20) Glucose (80-116) mg/dL Lactic Acid (0.4-2.0) mmol/L Calcium (8.6-10.2) mg/dL Magnesium (1.8-2.5) mg/dL Total Bilirubin (0.1-1.3) mg/dL AST (5-25) IU/L ALT (12-36) U/L Alkaline Phosphatase (56-112) IU/L Troponin I (4.0-60.3) pg/mL C-Reactive Protein (0.5-0.9) mg/dL Total Protein (6.0-8.0) g/dL Albumin (3.2-4.6) g/dL Globulin g/dL Albumin/Globulin Ratio Urine Color (YELLOW) Urine Appearance (CLEAR) Urine pH (5.0-6.5) Ur Specific [place] (1.010-1.025) Urine Protein (NEGATIVE) mg/dL Urine Glucose (UA) (NORMAL) mg/dL Urine Ketones (NEGATIVE) mg/dL Urine Occult Blood (NEGATIVE) Urine Nitrite (NEGATIVE) Urine Bilirubin (NEGATIVE) Urine Urobilinogen (NEGATIVE) mg/dL Ur Leukocyte Esterase (NEGATIVE) Urine RBC (0-5) Urine WBC (0-5) Ur Squamous Epith Cells (NS,R,O) Urine Bacteria (NS) SARS-CoV-2 RNA (HAROON) Positive H (NEGATIVE) Result Diagrams: 08/05/20 15:40 08/05/20 15:40 Sepsis Event Note - Evaluation Sepsis Screening Result: No Definite Risk - Focused Exam Vital Signs: Vital Signs Temp Pulse Resp BP Pulse Ox 08/06/20 07:49 98.3 F 76 20 157/82 H 99 08/06/20 06:12 97.6 F 75 18 132/80 95 - Problem List (1) Pneumonia due to COVID-19 virus SNOMED Code(s): 521147771110378753 ICD Code: U07.1 - COVID-19; J12.89 - OTHER VIRAL PNEUMONIA Status: Acute Current Visit: Yes (2) Dehydration, moderate SNOMED Code(s): 7388859896123 ICD Code: E86.0 - DEHYDRATION Status: Acute Current Visit: Yes (3) Developmental delay, mild SNOMED Code(s): 364982491 ICD Code: R62.50 - UNSP LACK OF EXPECTED NORMAL PHYSIOL DEV IN CHILDHOOD Status: Acute Current Visit: Yes Problem List Initiated/Reviewed/Updated: Yes Orders Last 24hrs: Active Orders 24 hr Category Date Time Status Patient Status [ADT] Routine ADT 08/05/20 19:16 Active Consistent Carbohydrate Diet [DIET] Diet 08/06/20 Lunch Active Chest 1V Frontal [CR] Stat Exams 08/05/20 15:00 Taken Head wo Cont [CT] Stat Exams 08/05/20 14:18 Taken BASIC METABOLIC PANEL,BMP [CHEM] Stat Lab 08/06/20 08:19 Ordered CBC WITH AUTO DIFF [HEME] Stat Lab 08/06/20 08:19 Ordered CULTURE BLOOD [BC] Urgent Lab 08/05/20 15:40 Received CULTURE URINE [RM] Stat Lab 08/05/20 15:50 Received Acetaminophen [TylenoL] Med 08/05/20 19:16 Active 650 mg PO Q4H PRN Acetaminophen [Tylenol Arthritis Pain] Med 08/06/20 09:17 Ordered 650 mg PO Q8H PRN Aspirin [Halfprin] Med 08/07/20 09:00 Ordered 81 mg PO DAILY Budesonide [Entocort EC] Med 08/07/20 09:00 Ordered 9 mg PO DAILY Chlorpheniramine/Dextromethorp [Coricidin Hbp Cough & Med 08/06/20 09:17 Ordered Cold] 1 each PO Q6H PRN Cholecalciferol (Vitamin D3) [Vitamin D3] Med 08/07/20 09:00 Ordered 1,000 unit PO DAILY Dextrose [Glucose] Med 08/06/20 09:17 Ordered 8 gm PO ASDIRECTED PRN Donepezil [Aricept] Med 08/06/20 21:00 Ordered 10 mg PO BEDTIME Escitalopram Oxalate [Escitalopram Oxalate] Med 08/07/20 09:00 Ordered 5 mg PO DAILY Ferrous Sulfate [Slow Release Iron] Med 08/07/20 09:00 Ordered 160 mg PO DAILY Memantine HCl [Namenda Xr] Med 08/07/20 09:00 Ordered 21 mg PO DAILY Mirtazapine [Mirtazapine] Med 08/06/20 21:00 Ordered 45 mg PO BEDTIME Multivits w-Fe,Other Min/Lut [Theratrum Complete] Med 08/07/20 09:00 Ordered 1 tab PO DAILY Ondansetron [Zofran] Med 08/05/20 19:16 Active 4 mg IV Q6H PRN QUEtiapine [SEROqueL] Med 08/06/20 09:17 Ordered 6.25 mg PO DAILY PRN Sodium Chloride 0.9% [Normal Saline] 1,000 ml Med 08/05/20 15:15 Active IV ASDIRECTED Sodium Chloride 0.9% [Saline Flush] Med 08/05/20 15:00 Active 10 ml FLUSH ASDIRECTED PRN atorvaSTATin [Lipitor] Med 08/07/20 09:00 Ordered 20 mg PO DAILY diphenhydrAMINE [Benadryl] Med 08/06/20 09:17 Ordered 50 mg PO Q6H PRN lisinopriL [Prinivil] Med 08/06/20 21:00 Ordered 2.5 mg PO BEDTIME polyethylene glycoL 3350 [MiraLAX] Med 08/07/20 09:00 Ordered 17 gm PO DAILY Blood Culture x2 Reflex Set [OM.PC] Urgent Oth 08/05/20 15:00 Ordered Peripheral IV Insertion Adult [OM.PC] Routine Oth 08/05/20 15:00 Ordered Resuscitation Status Routine Resus Stat 08/05/20 19:16 Ordered EKG 12 Lead [EK] Routine Ther 08/05/20 15:00 Ordered Medication Orders Acetaminophen (Tylenol) 650 mg PO Q4H PRN PRN Reason: Pain (Mild 1-3)/fever Acetaminophen (Tylenol Arthritis Pain) 650 mg PO Q8H PRN PRN Reason: Pain/Fever Aspirin (Halfprin) 81 mg PO DAILY RENE Atorvastatin Calcium (Lipitor) 20 mg PO DAILY RENE Budesonide (Entocort Ec) 9 mg PO DAILY RENE Diphenhydramine HCl (Benadryl) 50 mg PO Q6H PRN PRN Reason: Allergies Donepezil HCl (Aricept) 10 mg PO BEDTIME RENE Sodium Chloride (Normal Saline) 1,000 mls @ 100 mls/hr IV ASDIRECTED RENE Last Admin: 08/06/20 06:15 Dose: 100 mls/hr Documented by: Infusion: 08/06/20 04:46 Dose: 100 mls/hr Documented by: Admin: 08/05/20 18:46 Dose: 100 mls/hr Documented by: TIFFANI Lisinopril (Prinivil) 2.5 mg PO BEDTIME RENE Non-Formulary Medication (Chlorpheniramine/Dextromethorp [Coricidin Hbp Cough & Cold]) 1 each PO Q6H PRN PRN Reason: Congestion Non-Formulary Medication (Cholecalciferol (Vitamin D3) [Vitamin D3]) 1,000 unit PO DAILY RENE Non-Formulary Medication (Dextrose [Glucose]) 8 gm PO ASDIRECTED PRN PRN Reason: LOW BLOOD SUGAR Non-Formulary Medication (Escitalopram Oxalate [Escitalopram Oxalate]) 5 mg PO DAILY RENE Non-Formulary Medication (Ferrous Sulfate [Slow Release Iron]) 160 mg PO DAILY RENE Non-Formulary Medication (Memantine Hcl [Namenda Xr]) 21 mg PO DAILY RENE Non-Formulary Medication (Mirtazapine [Mirtazapine]) 45 mg PO BEDTIME RENE Non-Formulary Medication (Multivits W-Fe,Other Min/Lut [Theratrum Complete]) 1 tab PO DAILY RENE Ondansetron HCl (Zofran) 4 mg IV Q6H PRN PRN Reason: Nausea/Vomiting Polyethylene Glycol (Miralax) 17 gm PO DAILY RENE Quetiapine Fumarate (Seroquel) 6.25 mg PO DAILY PRN PRN Reason: Agitation Sodium Chloride (Saline Flush) 10 ml FLUSH ASDIRECTED PRN PRN Reason: Keep Vein Open Last Admin: 08/05/20 22:39 Dose: 10 ml Documented by: MARK Assessment/Plan Comment:: She has been diuresing well. remains vitally stable,with no respiratory symptoms.DC back to the halfway today.
[2020-08-06] MEDS ORDERED: Lisinopril 2.5 MG Tab PO SCH (21:00)
[2020-08-06] MEDS ORDERED: Donepezil 10 MG Tab PO SCH (21:00)
[2020-08-06] MEDS ORDERED: Non-Formulary Medication 1 Each (Mirtazapine [Mirtazapine] 45 MG) PO SCH (21:00)
[2020-08-07] MEDS ORDERED: Polyethylene Glycol 3350 Powder 17 GM Packet PO SCH (09:00)
[2020-08-07] MEDS ORDERED: ESCITALOPRAM OXALATE 5 MG PO SCH (09:00)
== END 2020-08-06 13:50 ==
LOC: FB.ED 14:14 → FB.MS 20:05 → UNDOADMOB 20:30
PROVIDERS: ADMIT Emergency Medicine; ATTEND Family Medicine
DX: U07.1 COVID-19 (principal); J12.89 Other viral pneumonia; E86.0 Dehydration; R62.50 Unspecified lack of expected normal physiological development in childhood; I10 Essential (primary) hypertension; E78.00 Pure hypercholesterolemia, unspecified; E66.9 Obesity, unspecified; Z79.899 Other long term (current) drug therapy; Z68.32 Body mass index [BMI] 32.0-32.9, adult
CPT/HCPCS: 36410; 36415; 70450; 71045; 80048; 80053; 81001; 83605; 83735; 84484; 85025; 86140; 87040; 87086; 93005; 93010; 99284; 99285-25; A9270-GY; G0378; J7030; J7040; U0002

== ENCOUNTER 2020-09-07 14:32 | Emergency (ER) | payer MEDICARE, MEDICAID ==
--- NOTE | 2020-09-07 14:55 | EDM.PDOC ---
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 No fever. Patient recently had COVID 3 weeks ago. Was brought to the ER for further evaluation. Onset: Today Onset Date: 09/07/20 Onset Time: 07:00 Location: Reports: Chest Severity: Moderate Associated Symptoms: Reports: Chest Pain, Loss of Appetite, Malaise - Related Data Allergies Allergy/AdvReac Type Severity Reaction Status Date / Time No Known Allergies Allergy Verified 09/07/20 14:44 Home Meds: Home Meds Aspirin [Halfprin] 81 mg PO DAILY 08/05/20 [History] Cholecalciferol (Vitamin D3) [Vitamin D3] 1,000 unit PO DAILY 08/05/20 [History] Donepezil HCl 10 mg PO BEDTIME 08/05/20 [History] Escitalopram Oxalate 5 mg PO DAILY 08/05/20 [History] Memantine HCl [Namenda Xr] 21 mg PO DAILY 08/05/20 [History] Mirtazapine 45 mg PO BEDTIME 08/05/20 [History] Multivits w-Fe,Other Min/Lut [Theratrum Complete] 1 tab PO DAILY 08/05/20 [History] atorvaSTATin [Lipitor] 20 mg PO DAILY 08/05/20 [History] Acetaminophen [Acetaminophen ER] 650 mg PO Q8H PRN 08/06/20 [History] Budesonide [Budesonide EC] 9 mg PO DAILY 08/06/20 [History] Chlorpheniramine/Dextromethorp [Coricidin Hbp Cough & Cold] 1 each PO Q6H PRN 08/06/20 [History] Dextrose [Glucose] 8 gm PO ASDIRECTED PRN 08/06/20 [History] Ferrous Sulfate [Slow Release Iron] 160 mg PO DAILY 08/06/20 [History] QUEtiapine [SEROquel] 6.25 mg PO DAILY PRN 08/06/20 [History] diphenhydrAMINE [Benadryl] 50 mg PO Q6H PRN 08/06/20 [History] lisinopriL [Lisinopril] 2.5 mg PO BEDTIME 08/06/20 [History] polyethylene glycoL 3350 [Gavilax] 17 gm PO DAILY 08/06/20 [History] cephALEXin [Keflex] 500 mg PO TID #21 cap 09/07/20 [Rx] Past Medical History HEENT History: Reports: Cataract Cardiovascular History: Reports: Heart Valve Replacement, High Cholesterol, Hypertension Genitourinary History: Reports: Urinary Incontinence Neurological History: Reports: Other (See Below) Other Neuro History: mild mental retardation Psychiatric History: Reports: Anxiety, Dementia, Depression, Other (See Below) Endocrine/Metabolic History: Reports: Obesity/BMI 30+ - Past Surgical History Cardiovascular Surgical History: Reports: Valve Replacement Other Musculoskeletal Surgeries/Procedures:: knee surgery to left knee and now unable to bend Social & Family History - Family History Family Medical History: No Pertinent Family History - Caffeine Use Caffeine Use: Reports: None - Living Situation & Occupation Living situation: Reports: Other (In assisted area) Occupation: Disabled ED ROS GENERAL - Review of Systems Review Of Systems: Unable To Obtain (h/o dementia) Reason Not Obtained: H/o cognitive impairment -- Dementia ED EXAM, GENERAL - Physical Exam Exam: See Below Exam Limited By: No Limitations General Appearance: Alert, WD/WN, No Apparent Distress Eye Exam: Bilateral Eye: EOMI, PERRL Ears: Normal External Exam, Normal Canal, Hearing Grossly Normal, Normal TMs Nose: Normal Inspection, Normal Mucosa, No Blood Throat/Mouth: Normal Inspection, Normal Lips, Normal Teeth, Normal Gums, Normal Oropharynx Head: Atraumatic, Normocephalic Neck: Normal Inspection Respiratory/Chest: No Respiratory Distress, Lungs Clear Cardiovascular: Normal Peripheral Pulses, Regular Rate, Rhythm, No Edema, No JVD GI/Abdominal: Normal Bowel Sounds, Soft, Non-Tender, No Organomegaly, No Distention Extremities: Normal Inspection, Normal Range of Motion, Non-Tender, No Pedal Edema Neurological: Confused, Other (H/o Dementia) Skin Exam: Warm, Intact Course - Vital Signs Last Recorded V/S: Last Vital Signs Temp Pulse 97 09/07/20 14:40 Resp 16 09/07/20 14:40 BP 133/73 09/07/20 14:40 Pulse Ox 95 09/07/20 14:40 - Orders/Labs/Meds Orders: Active Orders 24 hr Category Date Time Status EKG Documentation Completion [RC] ASDIRECTED Care 09/07/20 14:46 Active Chest 1V Frontal [CR] Stat Exams 09/07/20 14:55 Taken CULTURE URINE [RM] Stat Lab 09/07/20 15:40 Received EKG 12 Lead [EK] Routine Ther 09/07/20 14:46 Ordered Labs: Laboratory Tests 09/07/20 09/07/20 09/07/20 Range/Units 15:03 15:03 15:03 WBC 12.8 H (3.0-10.3) x10-3/uL RBC 4.19 (3.60-5.20) x10(6)uL Hgb 12.8 (11.4-15.5) g/dL Hct 40.2 (34.2-48.2) % MCV 95.8 (76.7-100.5) fL MCH 30.6 (23.9-33.9) pg MCHC 32.0 (31.9-34.8) g/dL RDW 13.2 (12.3-16.5) % Plt Count 202 (151-488) x10(3)uL MPV 8.5 (7.1-12.4) fL Neut % (Auto) 87.3 H (30.8-76.2) % Lymph % (Auto) 6.3 L (18.4-52.1) % [place] % (Auto) 5.8 (4.4-15.7) % Eos % (Auto) 0.2 L (0.6-8.1) % Baso % (Auto) 0.4 (0.2-1.5) % Neut # (Auto) 11.2 H (1.5-6.3) x10-3/uL Lymph # (Auto) 0.8 L (1.0-4.4) x10-3/uL [place] # (Auto) 0.7 (0.3-1.0) x10-3/uL Eos # (Auto) 0.0 (0.0-0.8) x10-3/uL Baso # (Auto) 0.1 (0.0-0.1) x10-3/uL Sodium 139 (135-145) mmol/L Potassium 4.2 (3.5-5.3) mmol/L Chloride 101 (100-110) mmol/L Carbon Dioxide 29 (21-32) mmol/L BUN 28 H (7-18) mg/dL Creatinine 1.3 H (0.55-1.02) mg/dL Est Cr Clr Drug Dosing TNP Estimated GFR (MDRD) 40 L (>60) BUN/Creatinine Ratio 21.5 H (9-20) Glucose 153 H (80-116) mg/dL Calcium 9.5 (8.6-10.2) mg/dL Total Bilirubin 0.3 (0.1-1.3) mg/dL AST 22 D (5-25) IU/L ALT 39 H D (12-36) U/L Alkaline Phosphatase 114 H (56-112) IU/L Troponin I 8.5 (4.0-60.3) pg/mL Total Protein 7.8 (6.0-8.0) g/dL Albumin 3.7 (3.2-4.6) g/dL Globulin 4.1 g/dL Albumin/Globulin Ratio 0.9 Urine Color (YELLOW) Urine Appearance (CLEAR) Urine pH (5.0-6.5) Ur Specific [place] (1.010-1.025) Urine Protein (NEGATIVE) mg/dL Urine Glucose (UA) (NORMAL) mg/dL Urine Ketones (NEGATIVE) mg/dL Urine Occult Blood (NEGATIVE) Urine Nitrite (NEGATIVE) Urine Bilirubin (NEGATIVE) Urine Urobilinogen (NEGATIVE) mg/dL Ur Leukocyte Esterase (NEGATIVE) Urine RBC (0-5) Urine WBC (0-5) Ur Squamous Epith Cells (NS,R,O) Urine Bacteria (NS) 09/07/20 Range/Units 15:40 WBC (3.0-10.3) x10-3/uL RBC (3.60-5.20) x10(6)uL Hgb (11.4-15.5) g/dL Hct (34.2-48.2) % MCV (76.7-100.5) fL MCH (23.9-33.9) pg MCHC (31.9-34.8) g/dL RDW (12.3-16.5) % Plt Count (151-488) x10(3)uL MPV (7.1-12.4) fL Neut % (Auto) (30.8-76.2) % Lymph % (Auto) (18.4-52.1) % [place] % (Auto) (4.4-15.7) % Eos % (Auto) (0.6-8.1) % Baso % (Auto) (0.2-1.5) % Neut # (Auto) (1.5-6.3) x10-3/uL Lymph # (Auto) (1.0-4.4) x10-3/uL [place]pp # (Auto) (0.3-1.0) x10-3/uL Eos # (Auto) (0.0-0.8) x10-3/uL Baso # (Auto) (0.0-0.1) x10-3/uL Sodium (135-145) mmol/L Potassium (3.5-5.3) mmol/L Chloride (100-110) mmol/L Carbon Dioxide (21-32) mmol/L BUN (7-18) mg/dL Creatinine (0.55-1.02) mg/dL Est Cr Clr Drug Dosing Estimated GFR (MDRD) (>60) BUN/Creatinine Ratio (9-20) Glucose (80-116) mg/dL Calcium (8.6-10.2) mg/dL Total Bilirubin (0.1-1.3) mg/dL AST (5-25) IU/L ALT (12-36) U/L Alkaline Phosphatase (56-112) IU/L Troponin I (4.0-60.3) pg/mL Total Protein (6.0-8.0) g/dL Albumin (3.2-4.6) g/dL Globulin g/dL Albumin/Globulin Ratio Urine Color Yellow (YELLOW) Urine Appearance Cloudy (CLEAR) Urine pH 6.0 (5.0-6.5) Ur Specific [place] 1.015 (1.010-1.025) Urine Protein Trace (NEGATIVE) mg/dL Urine Glucose (UA) Normal (NORMAL) mg/dL Urine Ketones Negative (NEGATIVE) mg/dL Urine Occult Blood Moderate H (NEGATIVE) Urine Nitrite Positive H (NEGATIVE) Urine Bilirubin Negative (NEGATIVE) Urine Urobilinogen Normal (NEGATIVE) mg/dL Ur Leukocyte Esterase Large H (NEGATIVE) Urine RBC 5-10 H (0-5) Urine WBC >100 H (0-5) Ur Squamous Epith Cells Rare (NS,R,O) Urine Bacteria Many H (NS) Meds: Medications Discontinued Medications Generic Name Dose Route Start Last Admin Trade Name Freq PRN Reason Stop Dose Admin Cephalexin 500 mg 09/07/20 16:19 09/07/20 16:29 Keflex PO 09/07/20 16:20 500 mg ONETIME ONE Administration Departure - Departure Time of Disposition: 16:27 Disposition: Home, Self-Care 01 Condition: Good Clinical Impression: Urinary tract infection, Chest pain, atypical Prescriptions: cephALEXin [Keflex] 500 mg PO TID #21 cap Instructions: Nonspecific Chest Pain, Adult, Urinary Tract Infection, Adult Referrals: PCP,None [Primary Care Provider] - Forms: ED Department Discharge Additional Instructions: Follow with PCP Stay hydrated Return if symptoms worsen Call your Physician or Return to Emergency Department if: * Your condition worsens in any way. * You develop fever greater than 100.4. * You have vomitting that does not stop with medications. * You have pain that is not controlled with medications. Sepsis Event Note (ED) - Evaluation Sepsis Screening Result: No Definite Risk - Focused Exam Vital Signs: Vital Signs Pulse Resp BP Pulse Ox 09/07/20 14:40 97 16 133/73 95 - Problem List & Annotations (1) Urinary tract infection SNOMED Code(s): 01315455 Code(s): N39.0 - URINARY TRACT INFECTION, SITE NOT SPECIFIED Status: Acute Current Visit: Yes (2) Chest pain, atypical SNOMED Code(s): 752044270 Code(s): R07.89 - OTHER CHEST PAIN Status: Acute Current Visit: Yes - Problem List Review Problem List Initiated/Reviewed/Updated: Yes - My Orders Last 24 Hours: My Active Orders 09/07/20 14:46 EKG Documentation Completion [RC] ASDIRECTED EKG 12 Lead [EK] Routine 09/07/20 14:55 Chest 1V Frontal [CR] Stat 09/07/20 15:40 CULTURE URINE [RM] Stat - Assessment/Plan Last 24 Hours: My Active Orders 09/07/20 14:46 EKG Documentation Completion [RC] ASDIRECTED EKG 12 Lead [EK] Routine 09/07/20 14:55 Chest 1V Frontal [CR] Stat 09/07/20 15:40 CULTURE URINE [RM] Stat
[2020-09-07] MEDS ORDERED: Cephalexin 500 MG Cap PO ONE (16:19)
--- NOTE | 2020-09-09 10:47 | CR ---
INDICATION: Chest pain. CHEST, ONE VIEW: An AP upright portable view of the chest was obtained 09/07/20 and compared with 08/05/20 and 11/02/09. Infiltration is noted at the costophrenic angles bilaterally extending into the lower middle lung chavarria bilaterally and appears mostly peripheral. The appearance raises suspicion for COVID-19 type pneumonia and should be correlated clinically. The infiltrates appear to be slightly more prominent than on the previous examination. They may be at least partly due to fibrosis and could be entirely due to progressive fibrosis - possibly chronic inflammatory disease also. The heart appears at the upper limits of normal in size but is emphasized by poor inspiration and AP positioning. Valve replacement is noted. The aorta is tortuous with calcification in the arch. IMPRESSION: Areas of apparent infiltration and/or fibrosis at both lung bases extending into the mid lung chavarria. Areas of superimposed pneumonia cannot be excluded. A process such as COVID-19 would be a consideration. MTDD
== END 2020-09-07 16:50 | disposition home or self-care (01) ==
LOC: FB.ED 14:32
DX: R07.89 Other chest pain (principal); N39.0 Urinary tract infection, site not specified; F03.90 Unspecified dementia, unspecified severity, without behavioral disturbance, psychotic disturbance, mood disturbance, and anxiety; I10 Essential (primary) hypertension; E78.00 Pure hypercholesterolemia, unspecified; F41.9 Anxiety disorder, unspecified; F32.9 Major depressive disorder, single episode, unspecified; E66.9 Obesity, unspecified; Z68.25 Body mass index [BMI] 25.0-25.9, adult; Z86.16 Personal history of COVID-19; Z79.899 Other long term (current) drug therapy; Z79.82 Long term (current) use of aspirin
CPT/HCPCS: 36415; 71045; 80053; 81001; 84484; 85025; 87086; 87088; 87186; 93005; 99283; 99285-25; A9270-GY

== ENCOUNTER 2021-02-01 12:23 | Emergency (ER) | payer MEDICARE, MEDICAID ==
[2021-02-01] MEDS ORDERED: Sodium Chloride 0.9% 500 ML IV ONE (12:36)
[2021-02-01] MEDS ORDERED: Sodium Chloride 0.9% 10 ML Syringe FLUSH PRN (12:36)
--- NOTE | 2021-02-01 13:06 | EDM.PDOC ---
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 Patient had told caregivers prior that she didn't feel well. There were no complaints of pain. Caregiver is not aware of fevers, cough, vomiting, or diarrhea. Mental status now at baseline and patient has no complaints. Caregiver is certain the patient did not fall. Duration: Hour(s): (1) - Related Data Allergies Allergy/AdvReac Type Severity Reaction Status Date / Time No Known Allergies Allergy Verified 02/01/21 12:56 Home Meds: Home Meds Aspirin [Halfprin] 81 mg PO DAILY 08/05/20 [History] Cholecalciferol (Vitamin D3) [Vitamin D3] 1,000 unit PO DAILY 08/05/20 [History] Donepezil HCl 10 mg PO BEDTIME 08/05/20 [History] Escitalopram Oxalate 5 mg PO DAILY 08/05/20 [History] Memantine HCl [Namenda Xr] 21 mg PO DAILY 08/05/20 [History] Mirtazapine 45 mg PO BEDTIME 08/05/20 [History] Multivits w-Fe,Other Min/Lut [Theratrum Complete] 1 tab PO DAILY 08/05/20 [History] atorvaSTATin [Lipitor] 20 mg PO DAILY 08/05/20 [History] Acetaminophen [Acetaminophen ER] 650 mg PO Q8H PRN 08/06/20 [History] Budesonide [Budesonide EC] 9 mg PO DAILY 08/06/20 [History] Chlorpheniramine/Dextromethorp [Coricidin Hbp Cough & Cold] 1 each PO Q6H PRN 08/06/20 [History] Ferrous Sulfate [Slow Release Iron] 160 mg PO DAILY 08/06/20 [History] QUEtiapine [SEROquel] 25 mg PO DAILY 08/06/20 [History] lisinopriL [Lisinopril] 2.5 mg PO DAILY 08/06/20 [History] polyethylene glycoL 3350 [Gavilax] 17 gm PO DAILY 08/06/20 [History] Past Medical History HEENT History: Reports: Cataract, Other (See Below) Other HEENT History: unspecified hearing loss. Cardiovascular History: Reports: Heart Murmur, Heart Valve Replacement, High Cholesterol, Hypertension, Other (See Below) Other Cardiovascular History: aortic valve disorders, severe aortic stenosis, acyanotic congenital heart disease. Respiratory History: Reports: Other (See Below) Other Respiratory History: pulmonary nodules. Other Gastrointestinal History: constipation. Genitourinary History: Reports: Urinary Incontinence, Other (See Below) Other Genitourinary History: chronic kidney disease Musculoskeletal History: Reports: Osteoporosis Neurological History: Reports: Other (See Below) Other Neuro History: mild mental retardation Psychiatric History: Reports: Alzheimers Disease, Anxiety, Dementia, Depression, Other (See Below) Endocrine/Metabolic History: Reports: Diabetes, Type II, Obesity/BMI 30+ Hematologic History: Reports: Anemia Oncologic (Cancer) History: Reports: Basal Cell Carcinoma, Other (See Below) - Past Surgical History Cardiovascular Surgical History: Reports: Valve Replacement Other Musculoskeletal Surgeries/Procedures:: knee surgery to left knee and now unable to bend Social & Family History - Family History Family Medical History: No Pertinent Family History - Caffeine Use Caffeine Use: Reports: None - Living Situation & Occupation Living situation: Reports: Other (In [facility] area) Occupation: Disabled ED ROS GENERAL - Review of Systems Review Of Systems: Unable To Obtain Reason Not Obtained: Mental retardation and Dementia ED EXAM, NEURO - Physical Exam Exam: See Below Exam Limited By: No Limitations General Appearance: Alert, WD/WN, No Apparent Distress Eye Exam: Bilateral Eye: EOMI, PERRL Ears: Normal External Exam Nose: Normal Inspection Throat/Mouth: Normal Inspection, No Airway Compromise Head Exam: Atraumatic, Normocephalic Neck: Non-Tender, Full Range of Motion Respiratory/Chest: No Respiratory Distress, Lungs Clear, Normal Breath Sounds Cardiovascular: Regular Rate, Rhythm, No Murmur GI/Abdominal: Normal Bowel Sounds, Soft, Non-Tender, No Distention Neurological: Alert, CN II-XII Intact, No Motor/Sensory Deficits, Other (GCS=15, NIHSS score=0 (excluding orientation questions)) Extremities: Normal Range of Motion, Non-Tender Skin Exam: Intact, No Rash, Other (2 x 2 cm ecchymosis to left hip) #1 Interpretation EKG Date: 02/01/21 Time: 12:36 Rhythm: NSR Rate (Beats/Min): 68 [place]: Normal P-Wave: Present QRS: Normal ST-T: Normal QT: Prolonged (494 ms) Comparison: No Change (09/07/2020) Course - Vital Signs Last Recorded V/S: Last Vital Signs Temp 36.5 C 02/01/21 12:30 Pulse 69 02/01/21 12:30 Resp 16 02/01/21 12:30 BP 106/48 L 02/01/21 12:30 Pulse Ox 97 02/01/21 12:30 - Orders/Labs/Meds Orders: Active Orders 24 hr Category Date Time Status EKG Documentation Completion [RC] ASDIRECTED Care 02/01/21 12:35 Active Nolasco Catheter Insertion [Insert Urinary Catheter] [OM. Care 02/01/21 13:15 Ordered PC] Q24H Urinary Catheter Assessment [RC] QSHIFT Care 02/01/21 13:05 Active Hip Min 2V or 3V w Pelvis Lt [CR] Stat Exams 02/01/21 13:23 Ordered CULTURE BLOOD [BC] Urgent Lab 02/01/21 12:50 Results CULTURE BLOOD [BC] Urgent Lab 02/01/21 13:05 Received Sodium Chloride 0.9% [Saline Flush] Med 02/01/21 12:36 Active 10 ml FLUSH ASDIRECTED PRN Blood Culture x2 Reflex Set [OM.PC] Urgent Oth 02/01/21 12:34 Ordered Saline Lock Insert [OM.PC] Routine Oth 02/01/21 12:36 Ordered EKG 12 Lead [EK] Stat Ther 02/01/21 12:34 Ordered Medication Orders Sodium Chloride (Sodium Chloride 0.9% 10 Ml Syringe) 10 ml FLUSH ASDIRECTED PRN PRN Reason: Keep Vein Open Labs: Laboratory Tests 02/01/21 02/01/21 02/01/21 Range/Units 12:50 12:50 12:50 WBC 6.2 (3.0-10.3) x10-3/uL RBC 4.22 (3.60-5.20) x10(6)uL Hgb 12.8 (11.4-15.5) g/dL Hct 39.6 (34.2-48.2) % MCV 93.9 (76.7-100.5) fL MCH 30.4 (23.9-33.9) pg MCHC 32.4 (31.9-34.8) g/dL RDW 13.2 (12.3-16.5) % Plt Count 210 (151-488) x10(3)uL MPV 8.7 (7.1-12.4) fL Neut % (Auto) 73.6 (30.8-76.2) % Lymph % (Auto) 18.9 (18.4-52.1) % [place] % (Auto) 5.9 (4.4-15.7) % Eos % (Auto) 0.6 (0.6-8.1) % Baso % (Auto) 1.0 (0.2-1.5) % Neut # (Auto) 4.6 (1.5-6.3) x10-3/uL Lymph # (Auto) 1.2 (1.0-4.4) x10-3/uL [place] # (Auto) 0.4 (0.3-1.0) x10-3/uL Eos # (Auto) 0.0 (0.0-0.8) x10-3/uL Baso # (Auto) 0.1 (0.0-0.1) x10-3/uL Sodium 144 (135-145) mmol/L Potassium 4.5 (3.5-5.3) mmol/L Chloride 107 D (100-110) mmol/L Carbon Dioxide 29 (21-32) mmol/L BUN 29 H (7-18) mg/dL Creatinine 1.3 H (0.55-1.02) mg/dL Est Cr Clr Drug Dosing 33.65 mL/min Estimated GFR (MDRD) 40 L (>60) BUN/Creatinine Ratio 22.3 H (9-20) Glucose 142 H (80-116) mg/dL Lactic Acid (0.4-2.0) mmol/L Calcium 8.5 L (8.6-10.2) mg/dL Total Bilirubin 0.2 (0.1-1.3) mg/dL AST 24 (5-25) IU/L ALT 39 H (12-36) U/L Alkaline Phosphatase 129 H (56-112) IU/L Troponin I 12.0 (4.0-60.3) pg/mL Total Protein 7.2 (6.0-8.0) g/dL Albumin 3.4 (3.2-4.6) g/dL Globulin 3.8 g/dL Albumin/Globulin Ratio 0.9 Urine Color (YELLOW) Urine Appearance (CLEAR) Urine pH (5.0-6.5) Ur Specific [place] (1.010-1.025) Urine Protein (NEGATIVE) mg/dL Urine Glucose (UA) (NORMAL) mg/dL Urine Ketones (NEGATIVE) mg/dL Urine Occult Blood (NEGATIVE) Urine Nitrite (NEGATIVE) Urine Bilirubin (NEGATIVE) Urine Urobilinogen (NEGATIVE) mg/dL Ur Leukocyte Esterase (NEGATIVE) Urine WBC (0-5) Ur Squamous Epith Cells (NS,R,O) Urine Bacteria (NS) 02/01/21 02/01/21 Range/Units 12:50 13:20 WBC (3.0-10.3) x10-3/uL RBC (3.60-5.20) x10(6)uL Hgb (11.4-15.5) g/dL Hct (34.2-48.2) % MCV (76.7-100.5) fL MCH (23.9-33.9) pg MCHC (31.9-34.8) g/dL RDW (12.3-16.5) % Plt Count (151-488) x10(3)uL MPV (7.1-12.4) fL Neut % (Auto) (30.8-76.2) % Lymph % (Auto) (18.4-52.1) % [place] % (Auto) (4.4-15.7) % Eos % (Auto) (0.6-8.1) % Baso % (Auto) (0.2-1.5) % Neut # (Auto) (1.5-6.3) x10-3/uL Lymph # (Auto) (1.0-4.4) x10-3/uL [place] # (Auto) (0.3-1.0) x10-3/uL Eos # (Auto) (0.0-0.8) x10-3/uL Baso # (Auto) (0.0-0.1) x10-3/uL Sodium (135-145) mmol/L Potassium (3.5-5.3) mmol/L Chloride (100-110) mmol/L Carbon Dioxide (21-32) mmol/L BUN (7-18) mg/dL Creatinine (0.55-1.02) mg/dL Est Cr Clr Drug Dosing mL/min Estimated GFR (MDRD) (>60) BUN/Creatinine Ratio (9-20) Glucose (80-116) mg/dL Lactic Acid 1.8 (0.4-2.0) mmol/L Calcium (8.6-10.2) mg/dL Total Bilirubin (0.1-1.3) mg/dL AST (5-25) IU/L ALT (12-36) U/L Alkaline Phosphatase (56-112) IU/L Troponin I (4.0-60.3) pg/mL Total Protein (6.0-8.0) g/dL Albumin (3.2-4.6) g/dL Globulin g/dL Albumin/Globulin Ratio Urine Color Yellow (YELLOW) Urine Appearance Clear (CLEAR) Urine pH 6.0 (5.0-6.5) Ur Specific [place] 1.010 (1.010-1.025) Urine Protein Negative (NEGATIVE) mg/dL Urine Glucose (UA) Normal (NORMAL) mg/dL Urine Ketones Negative (NEGATIVE) mg/dL Urine Occult Blood Negative (NEGATIVE) Urine Nitrite Negative (NEGATIVE) Urine Bilirubin Negative (NEGATIVE) Urine Urobilinogen Normal (NEGATIVE) mg/dL Ur Leukocyte Esterase Negative (NEGATIVE) Urine WBC 0-5 (0-5) Ur Squamous Epith Cells Occasional (NS,R,O) Urine Bacteria Occasional H (NS) Meds: Medications Generic Name Dose Route Start Last Admin Trade Name Freq PRN Reason Stop Dose Admin Sodium Chloride 10 ml 02/01/21 12:36 Sodium Chloride 0.9% 10 Ml Syringe FLUSH ASDIRECTED PRN Keep Vein Open Discontinued Medications Generic Name Dose Route Start Last Admin Trade Name Freq PRN Reason Stop Dose Admin Sodium Chloride 500 mls @ 500 mls/hr 02/01/21 12:36 Normal Saline IV 02/01/21 13:35 .BOLUS ONE - Radiology Interpretation Free Text/Narrative:: Left hip with pelvis xray: No fracture or dislocation. (ED provider interpretation) - Re-Assessments/Exams Free Text/Narrative Re-Assessment/Exam: 02/01/21 13:47 No mental status changes in the ED. Departure - Departure Time of Disposition: 13:47 Disposition: Home, Self-Care 01 Condition: Good Clinical Impression: Transient alteration of awareness Contusion of left hip Qualifiers: Encounter type: initial encounter Qualified Code(s): S70.02XA - Contusion of left hip, initial encounter - Discharge Information *PRESCRIPTION DRUG MONITORING PROGRAM REVIEWED*: No *COPY OF PRESCRIPTION DRUG MONITORING REPORT IN PATIENT ANGELO: Not Applicable Instructions: Altered Mental Status Referrals: Joceline Sotomayor MD [Primary Care Provider] - 3 Days Forms: ED Department Discharge Additional Instructions: Follow up with her Primary Physician in 3-4 days. Return to the ER with any concerns. Sepsis Event Note (ED) - Focused Exam Vital Signs: Vital Signs Temp Pulse Resp BP Pulse Ox 02/01/21 12:30 36.5 C 69 16 106/48 L 97 - My Orders Last 24 Hours: My Active Orders 02/01/21 12:34 Blood Culture x2 Reflex Set [OM.PC] Urgent EKG 12 Lead [EK] Stat 02/01/21 12:35 EKG Documentation Completion [RC] ASDIRECTED 02/01/21 12:36 Sodium Chloride 0.9% [Saline Flush] 10 ml FLUSH ASDIRECTED PRN Saline Lock Insert [OM.PC] Routine 02/01/21 12:50 CULTURE BLOOD [BC] Urgent 02/01/21 13:05 Urinary Catheter Assessment [RC] QSHIFT CULTURE BLOOD [BC] Urgent 02/01/21 13:15 Nolasco Catheter Insertion [Insert Urinary Catheter] [OM.PC] Q24H 02/01/21 13:23 Hip Min 2V or 3V w Pelvis Lt [CR] Stat - Assessment/Plan Last 24 Hours: My Active Orders 02/01/21 12:34 Blood Culture x2 Reflex Set [OM.PC] Urgent EKG 12 Lead [EK] Stat 02/01/21 12:35 EKG Documentation Completion [RC] ASDIRECTED 02/01/21 12:36 Sodium Chloride 0.9% [Saline Flush] 10 ml FLUSH ASDIRECTED PRN Saline Lock Insert [OM.PC] Routine 02/01/21 12:50 CULTURE BLOOD [BC] Urgent 02/01/21 13:05 Urinary Catheter Assessment [RC] QSHIFT CULTURE BLOOD [BC] Urgent 02/01/21 13:15 Nolasco Catheter Insertion [Insert Urinary Catheter] [OM.PC] Q24H 02/01/21 13:23 Hip Min 2V or 3V w Pelvis Lt [CR] Stat
--- NOTE | 2021-02-04 11:29 | CR ---
INDICATION: Injury. LEFT HIP WITH PELVIS: Frontal view of the pelvis with two additional views of the left hip were obtained, one AP and one very slightly oblique (the patient was unable to cooperate with the examination). Mild degenerative changes are noted at the sacroiliac joints which appear intact otherwise. A definite fracture site or dislocation was not identified. Hips appear fairly normal for age. Arterial calcifications are noted. IMPRESSION: 1. No acute fracture or dislocation. 2. ASD. 3. DJD sacroiliac joints. If symptoms persist - if occult fracture site is suspected clinically, reexamination in 10 to 14 days or more advanced imaging may be helpful. MTDD
== END 2021-02-01 14:20 | disposition home or self-care (01) ==
LOC: FB.ED 12:23
DX: S70.02XA Contusion of left hip, initial encounter (principal); R40.4 Transient alteration of awareness; E78.00 Pure hypercholesterolemia, unspecified; I10 Essential (primary) hypertension; E66.9 Obesity, unspecified; Z68.29 Body mass index [BMI] 29.0-29.9, adult; Z79.82 Long term (current) use of aspirin; X58.XXXA Exposure to other specified factors, initial encounter
CPT/HCPCS: 36415; 73502; 80053; 81001; 83605; 84484; 85025; 87040; 93005; 99284; J7040

== ENCOUNTER 2021-02-16 04:23 | Emergency (ER) | payer MEDICARE, MEDICAID ==
--- NOTE | 2021-02-16 04:40 | EDM.PDOC ---
ED HPI GENERAL MEDICAL PROBLEM - General Chief Complaint: Head Injury Stated Complaint: PATIENT FELL OUT OF BED Time Seen by Provider: 02/16/21 04:30 Source of Information: Reports: Other ([facility] staff) History Limitations: Reports: Other (Patient with dementia and mental retardation and cannot provide me with this information) - History of Present Illness INITIAL COMMENTS - FREE TEXT/NARRATIVE: 75-year-old female who is a long-term resident of [address] who was found on the floor by the [facility] staff at approximately 2:45 AM. The patient was heard by staff to be screaming and calling out and when they went to investigate, they found the patient lying on her left side on the floor beside her bed. She was able to sit up but when they tried to get her to stand, she was complaining of some left knee, thigh and hip area pain. There was also a noticeable ecchymosis and swelling to her left forehead. The patient has mental retardation and dementia and is really unable to give us any history. All of the history that I am able to obtain is from a report from the staff at the [facility] who was taking care of the patient. The patient presents via ambulance and is awake and alert. She is conversant reporting "I am fine" and "I need my bra and pants" and "I want to go home". No known loss of consciousness. She has been normally responsive and per her level of responsiveness the entire time. No vomiting. The patient had been doing well recently although she was just diagnosed with shingles on her left trunk 7-10 days ago and now her rash has al most resolved. According to the [facility] staff, the patient has been eating and drinking per her norm and activity level and level of responsiveness over the past few days. The patient was seen in this emergency department on 02/03/2021 and had cup which was essentially unremarkable. This was due to an unresponsive episode. She apparently has been responsive and basically back to her baseline neurologically since this incident occurred. There are no other associated signs or symptoms. There are no other modifying factors. 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 (see below) (Nothing) - Related Data Allergies Allergy/AdvReac Type Severity Reaction Status Date / Time blueberry Allergy Facial Verified 02/16/21 04:46 Swelling pineapple Allergy Facial Verified 02/16/21 04:46 Swelling prunes Allergy Facial Verified 02/16/21 04:46 Swelling rofecoxib [From Vioxx] Allergy Cannot Verified 02/16/21 04:46 Remember strawberry Allergy Facial Verified 02/16/21 04:46 Swelling sulfamethoxazole Allergy Facial Verified 02/16/21 04:46 [From Septra] Swelling trimethoprim [From Septra] Allergy Facial Verified 02/16/21 04:46 Swelling Home Meds: Home Meds Donepezil HCl 10 mg PO BEDTIME 08/05/20 [History] Escitalopram Oxalate 5 mg PO DAILY 08/05/20 [History] Mirtazapine 45 mg PO BEDTIME 08/05/20 [History] Multivits w-Fe,Other Min/Lut [Theratrum Complete] 1 tab PO DAILY 08/05/20 [History] atorvaSTATin [Lipitor] 20 mg PO DAILY 08/05/20 [History] Acetaminophen [Acetaminophen ER] 650 mg PO Q8H PRN 08/06/20 [History] Chlorpheniramine/Dextromethorp [Coricidin Hbp Cough & Cold] 1 each PO Q6H PRN 08/06/20 [History] Ferrous Sulfate [Slow Release Iron] 160 mg PO DAILY 08/06/20 [History] lisinopriL [Lisinopril] 2.5 mg PO DAILY 08/06/20 [History] Aspirin 325 mg PO DAILY 02/16/21 [History] LORazepam [Ativan] 0.25 mg PO DAILY PRN 02/16/21 [History] diphenhydrAMINE [Benadryl] 50 mg PO Q6H PRN 02/16/21 [History] Past Medical History HEENT History: Reports: Cataract, Other (See Below) Other HEENT History: unspecified hearing loss. Cardiovascular History: Reports: Heart Murmur, Heart Valve Replacement, High Cholesterol, Hypertension, Other (See Below) Other Cardiovascular History: aortic valve disorders, severe aortic stenosis, acyanotic congenital heart disease. Respiratory History: Reports: Other (See Below) Other Respiratory History: pulmonary nodules. Gastrointestinal History: Reports: Chronic Constipation Genitourinary History: Reports: Urinary Incontinence, Other (See Below) Other Genitourinary History: chronic kidney disease Musculoskeletal History: Reports: Osteoporosis Neurological History: Reports: Other (See Below) Other Neuro History: mild mental retardation Psychiatric History: Reports: Alzheimers Disease, Anxiety, Dementia, Depression, Other (See Below) Endocrine/Metabolic History: Reports: Diabetes, Type II, Obesity/BMI 30+ Hematologic History: Reports: Anemia Oncologic (Cancer) History: Reports: Basal Cell Carcinoma, Other (See Below) - Past Surgical History Cardiovascular Surgical History: Reports: Valve Replacement Other Musculoskeletal Surgeries/Procedures:: knee surgery to left knee and now unable to bend Social & Family History - Family History Family Medical History: No Pertinent Family History - Tobacco Use Tobacco Use Status *Q: Never Tobacco User - Caffeine Use Caffeine Use: Reports: Coffee - Recreational Drug Use Recreational Drug Use: No - Living Situation & Occupation Living situation: Reports: Other (In [facility] area) Occupation: Disabled ED ROS GENERAL - Review of Systems Review Of Systems: Unable To Obtain Reason Not Obtained: Dementia ED EXAM, HEAD INJURY - Physical Exam Exam: See Below Exam Limited By: Uncooperative General Appearance: Alert, No Apparent Distress Head: Normocephalic Nexus Criteria: Altered Level of Consciousness (Neck) Eyes: Bilateral Eye: EOMI, Normal Inspection, PERRL Ears: Normal External Exam, Hearing Grossly Normal Nose: Normal Inspection, Normal Mucousa, No Blood Throat/Mouth: Normal Lips, Normal Voice, No Airway Compromise Neck: Non-Tender, Full Range of Motion, Normal Inspection Cardiovascular: Normal Peripheral Pulses, Regular Rate, Rhythm, No Murmur GI/Abdominal Exam: Normal Bowel Sounds, Soft, Non-Tender, No Mass Back Exam: No: Paraspinal Tenderness, Vertebral Tenderness Extremities: No Pedal Edema, Normal Capillary Refill, Other (Questionable tenderness on left hip and thigh and knee. 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-XII nml As Tested, No Motor/Sensory Deficits, Oriented x 3 Skin: Normal Color, Warm/Dry - [place] Coma Score Best Eye Response ([place]): (4) Open Spontaneously Best Verbal Response ([place]): (5) Oriented Best Motor Response ([place]): (6) Obeys Commands [place] Total: 15 Course - Vital Signs Last Recorded V/S: Last Vital Signs Temp 37.0 C 02/16/21 04:27 Pulse 79 02/16/21 04:27 Resp 18 02/16/21 04:27 BP 149/70 H 02/16/21 04:27 Pulse Ox 95 02/16/21 04:27 - Orders/Labs/Meds Orders: Active Orders 24 hr Category Date Time Status Cervical Spine wo Cont [CT] Stat Exams 02/16/21 05:00 Ordered Head wo Cont [CT] Stat Exams 02/16/21 05:00 Taken Hip Min 2V or 3V w Pelvis Lt [CR] Stat Exams 02/16/21 05:00 Ordered Knee 1V or 2V Lt [CR] Stat Exams 02/16/21 05:00 Taken - Radiology Interpretation Free Text/Narrative:: CT scan of head showed no fracture and no bleeding. There was a left forehead hematoma. This was per [facility] radiology. CT scan of cervical spine showed degenerative changes but no fracture per the [facility] radiologist. Pelvis and left hip showed no fracture and no dislocation per my read. Left knee x-ray showed no fracture and no malalignment per my read. - Re-Assessments/Exams Free Text/Narrative Re-Assessment/Exam: 02/16/21 06:40: Patient has remained awake, alert and appropriately responsive and interactive. Per both of the [facility] staff who are here now, the patient is definitely back to baseline. The CT scan of her head showed no fracture and no bleeding. There was a hematoma on the left forehead. The CT scan of the cervical spine showed no fracture as well. The x-rays of her pelvis and left hip and the x-rays of her left knee showed no fractures. The patient was able to ambulate and had no apparent pain with bearing weight or moving and moved quite well, in the end, doing so with out any assistance. She is stable to go back to [facility]. Departure - Departure Time of Disposition: 06:48 Disposition: DC/Tfer to [facility] Condition: Fair (Stable) Clinical Impression: Fall from bed, initial encounter, Contusion of left hip, initial encounter, Contusion of left knee, initial encounter Forehead contusion Qualifiers: Encounter type: initial encounter Qualified Code(s): S00.83XA - Contusion of other part of head, initial encounter - Discharge Information Instructions: Head Injury, Adult, [id number], Contusion, [id number] Forms: ED Department Discharge Additional Instructions: The x-rays of her pelvis and left hip showed no fracture. The x-rays of her left knee showed no fracture. The CT scan of her head showed no fracture and no bleeding. The CT scan of her cervical spine showed degenerative changes but no fracture. She appears to have only bruises related to this fall. At appear to be anything more of a serious nature. You can give her Tylenol 1000 mg by mouth every 6 hours as needed for pain. Back to the emergency department for unrelenting vomiting, not responding appropriately, complaints of worsening or ongoing pain or any other concerning signs or symptoms. Sepsis Event Note (ED) - Evaluation Sepsis Screening Result: No Definite Risk - Focused Exam Vital Signs: Vital Signs Temp Pulse Resp BP Pulse Ox 02/16/21 04:27 37.0 C 79 18 149/70 H 95 - My Orders Last 24 Hours: My Active Orders 02/16/21 05:00 Cervical Spine wo Cont [CT] Stat Head wo Cont [CT] Stat Hip Min 2V or 3V w Pelvis Lt [CR] Stat Knee 1V or 2V Lt [CR] Stat - Assessment/Plan Last 24 Hours: My Active Orders 02/16/21 05:00 Cervical Spine wo Cont [CT] Stat Head wo Cont [CT] Stat Hip Min 2V or 3V w Pelvis Lt [CR] Stat Knee 1V or 2V Lt [CR] Stat
--- NOTE | 2021-02-17 13:04 | CR ---
INDICATION: Fall with injury, left thigh and knee pain. LEFT KNEE TWO VIEWS: Frontal and lateral views of the left knee were obtained 02/16/21 and compared with 02/09/08. A total knee arthroplasty is noted which remains in good position and alignment, without evidence of a definite complicating process. It appears stable compared with the previous examination without a definite fracture or dislocation. IMPRESSION: 1. No acute fracture or dislocation. 2. Satisfactory appearance post TKA left knee. MARCOSD
--- NOTE | 2021-02-17 13:09 | CR ---
INDICATION: Fall with injury - left thigh and knee pain. LEFT HIP WITH PELVIS: Frontal view of the pelvis with frontal and lateral views of the left hip were obtained 02/16/21 and compared with 02/01/21. Mild to moderate degenerative changes are noted at the sacroiliac joint, left greater than right. Hip joints appear to be fairly intact with normal bone density overall. An acute fracture or dislocation was not identified. If symptoms persist - if occult fracture site is suspected clinically, re- examination in 10-14 days, or more advanced imaging, may be helpful. MTDD
== END 2021-02-16 07:09 ==
LOC: FB.ED 04:23
DX: S00.83XA Contusion of other part of head, initial encounter (principal); S80.02XA Contusion of left knee, initial encounter; S70.02XA Contusion of left hip, initial encounter; Z91.018 Allergy to other foods; Z88.1 Allergy status to other antibiotic agents; E11.9 Type 2 diabetes mellitus without complications; I10 Essential (primary) hypertension; E78.00 Pure hypercholesterolemia, unspecified; E66.9 Obesity, unspecified; Z68.30 Body mass index [BMI] 30.0-30.9, adult; Z79.82 Long term (current) use of aspirin; Z79.899 Other long term (current) drug therapy; W22.8XXA Striking against or struck by other objects, initial encounter
CPT/HCPCS: 70450; 72125; 73502-LT; 73560-LT; 99285-25

== ENCOUNTER 2021-07-13 13:06 | Emergency (ER) | payer MEDICARE, MEDICAID ==
--- NOTE | 2021-07-13 17:16 | EDM.PDOC ---
ED HPI GENERAL MEDICAL PROBLEM - General Chief Complaint: Syncope Stated Complaint: PASSED OUT Time Seen by Provider: 07/13/21 13:15 Source of Information: Reports: Patient, Other (caregiver) History Limitations: Reports: No Limitations - History of Present Illness INITIAL COMMENTS - FREE TEXT/NARRATIVE: Patient presented to the ED because of a brief syncopal episode while playing cards. She was unresponsive for 2-3 minutes. She denies having any headache, N/V, chest pain or palpitations. She had similar episode in the past and had neuro and cardiac work up which were negative. - Related Data Allergies Allergy/AdvReac Type Severity Reaction Status Date / Time blueberry Allergy Facial Verified 02/16/21 04:46 Swelling pineapple Allergy Facial Verified 02/16/21 04:46 Swelling prunes Allergy Facial Verified 02/16/21 04:46 Swelling rofecoxib [From Vioxx] Allergy Cannot Verified 02/16/21 04:46 Remember strawberry Allergy Facial Verified 02/16/21 04:46 Swelling sulfamethoxazole Allergy Facial Verified 02/16/21 04:46 [From Septra] Swelling trimethoprim [From Septra] Allergy Facial Verified 02/16/21 04:46 Swelling Home Meds: Home Meds Donepezil HCl 10 mg PO BEDTIME 08/05/20 [History] Escitalopram Oxalate 5 mg PO DAILY 08/05/20 [History] Mirtazapine 45 mg PO BEDTIME 08/05/20 [History] Multivits w-Fe,Other Min/Lut [Theratrum Complete] 1 tab PO DAILY 08/05/20 [History] atorvaSTATin [Lipitor] 20 mg PO DAILY 08/05/20 [History] Acetaminophen [Acetaminophen ER] 650 mg PO Q8H PRN 08/06/20 [History] Chlorpheniramine/Dextromethorp [Coricidin Hbp Cough & Cold] 1 each PO Q6H PRN 08/06/20 [History] Ferrous Sulfate [Slow Release Iron] 160 mg PO DAILY 08/06/20 [History] lisinopriL [Lisinopril] 2.5 mg PO DAILY 08/06/20 [History] Aspirin 325 mg PO DAILY 02/16/21 [History] LORazepam [Ativan] 0.25 mg PO DAILY PRN 02/16/21 [History] diphenhydrAMINE [Benadryl] 50 mg PO Q6H PRN 02/16/21 [History] Past Medical History HEENT History: Reports: Cataract, Other (See Below) Other HEENT History: unspecified hearing loss. Cardiovascular History: Reports: Heart Murmur, Heart Valve Replacement, High Cholesterol, Hypertension, Other (See Below) Other Cardiovascular History: aortic valve disorders, severe aortic stenosis, acyanotic congenital heart disease. Respiratory History: Reports: Other (See Below) Other Respiratory History: pulmonary nodules. Gastrointestinal History: Reports: Chronic Constipation Other Gastrointestinal History: constipation. Genitourinary History: Reports: Urinary Incontinence, Other (See Below) Other Genitourinary History: chronic kidney disease Musculoskeletal History: Reports: Osteoporosis Neurological History: Reports: Other (See Below) Other Neuro History: mild mental retardation Psychiatric History: Reports: Alzheimers Disease, Anxiety, Dementia, Depression, Other (See Below) Endocrine/Metabolic History: Reports: Diabetes, Type II, Obesity/BMI 30+ Hematologic History: Reports: Anemia Oncologic (Cancer) History: Reports: Basal Cell Carcinoma, Other (See Below) - Past Surgical History Cardiovascular Surgical History: Reports: Valve Replacement Other Musculoskeletal Surgeries/Procedures:: knee surgery to left knee and now unable to bend Social & Family History - Family History Family Medical History: No Pertinent Family History - Tobacco Use Tobacco Use Status *Q: Unknown Ever Used Tobacco - Caffeine Use Caffeine Use: Reports: None - Living Situation & Occupation Living situation: Reports: Other (In halfway area) Occupation: Disabled ED ROS GENERAL - Review of Systems Review Of Systems: See Below Constitutional: Reports: No Symptoms HEENT: Reports: No Symptoms Respiratory: Reports: No Symptoms Cardiovascular: Reports: No Symptoms Endocrine: Reports: No Symptoms GI/Abdominal: Reports: No Symptoms : Reports: No Symptoms Musculoskeletal: Reports: No Symptoms Skin: Reports: No Symptoms Neurological: Reports: Syncope Psychiatric: Reports: No Symptoms Hematologic/Lymphatic: Reports: No Symptoms ED EXAM, NEURO - Physical Exam Exam: See Below Exam Limited By: No Limitations General Appearance: Alert Ears: Normal External Exam, Normal Canal, Normal TMs Nose: Normal Inspection, Normal Mucosa, No Blood Throat/Mouth: Normal Inspection, Normal Lips, Normal Teeth, Normal Gums, Normal Oropharynx, Normal Voice Head Exam: Atraumatic, Normocephalic Neck: Normal Inspection, Supple, Non-Tender, Full Range of Motion Respiratory/Chest: No Respiratory Distress, Lungs Clear, Normal Breath Sounds, No Accessory Muscle Use, Chest Non-Tender Cardiovascular: Normal Peripheral Pulses, Regular Rate, Rhythm, No Edema, No Gallop, No JVD, No Murmur, No Rub GI/Abdominal: Normal Bowel Sounds, Soft, Non-Tender, No Organomegaly, No Distention, No Abnormal Bruit, No Mass, Pelvis Stable Neurological: Alert, Normal Mood/Affect, Normal Dorsiflexion, CN II-XII Intact, Normal Plantar Flexion, Normal Gait, Normal Reflexes #1 Interpretation EKG Date: 07/13/21 Time: 14:26 Rhythm: NSR Rate (Beats/Min): 81 [place]: Normal P-Wave: Present QRS: Normal ST-T: Normal QT: Normal [place]/PQ Interval: 143 Comparison: No Change EKG Interpretation Comments: NSR PVC's Course - Vital Signs Text/Narrative:: Lab/EKG result was reviewed and discussed with patient and her caregiver Last Recorded V/S: Last Vital Signs Temp 36.4 C 07/13/21 14:42 Pulse 82 07/13/21 14:53 Resp 16 07/13/21 14:53 BP 140/69 07/13/21 14:53 Pulse Ox 96 07/13/21 14:53 - Orders/Labs/Meds Labs: Laboratory Tests 07/13/21 07/13/21 07/13/21 Range/Units 15:00 15:00 15:00 WBC 10.8 H (3.0-10.3) x10-3/uL RBC 4.30 (3.60-5.20) x10(6)uL Hgb 13.1 (11.4-15.5) g/dL Hct 40.3 (34.2-48.2) % MCV 93.7 (76.7-100.5) fL MCH 30.4 (23.9-33.9) pg MCHC 32.4 (31.9-34.8) g/dL RDW 12.9 (12.3-16.5) % Plt Count 196 (151-488) x10(3)uL MPV 8.5 (7.1-12.4) fL Neut % (Auto) 83.1 H (30.8-76.2) % Lymph % (Auto) 10.1 L (18.4-52.1) % Yates % (Auto) 6.0 (4.4-15.7) % Eos % (Auto) 0.5 L (0.6-8.1) % Baso % (Auto) 0.3 (0.2-1.5) % Neut # (Auto) 9.0 H (1.5-6.3) x10-3/uL Lymph # (Auto) 1.1 (1.0-4.4) x10-3/uL Yates # (Auto) 0.6 (0.3-1.0) x10-3/uL Eos # (Auto) 0.1 (0.0-0.8) x10-3/uL Baso # (Auto) 0.0 (0.0-0.1) x10-3/uL Sodium 143 (135-145) mmol/L Potassium 3.8 (3.5-5.3) mmol/L Chloride 105 (100-110) mmol/L Carbon Dioxide 29 (21-32) mmol/L BUN 26 H (7-18) mg/dL Creatinine 1.4 H (0.55-1.02) mg/dL Est Cr Clr Drug Dosing TNP Estimated GFR (MDRD) 37 L (>60) BUN/Creatinine Ratio 18.6 (9-20) Glucose 169 H (80-116) mg/dL Calcium 9.4 (8.6-10.2) mg/dL Total Bilirubin 0.3 (0.1-1.3) mg/dL AST 25 (5-25) IU/L ALT 36 (12-36) U/L Alkaline Phosphatase 123 H (56-112) IU/L Troponin I 17.8 (4.0-60.3) pg/mL Total Protein 7.3 (6.0-8.0) g/dL Albumin 3.7 (3.2-4.6) g/dL Globulin 3.6 g/dL Albumin/Globulin Ratio 1.0 Departure - Departure Time of Disposition: 17:30 Disposition: Home, Self-Care 01 Condition: Good Clinical Impression: Vasovagal syncope - Discharge Information Instructions: Syncope, [id number] Referrals: Xena Alston, QUALITATIVE EXECUTIVE RESEARCHER [Primary Care Provider] - Forms: ED Department Discharge Additional Instructions: Please read discharge instructions on vasovagal syncope Follow up as needed Sepsis Event Note (ED) - Evaluation Sepsis Screening Result: No Definite Risk
== END 2021-07-13 15:50 | disposition home or self-care (01) ==
LOC: FB.ED 13:06
DX: R55 Syncope and collapse (principal); E78.00 Pure hypercholesterolemia, unspecified; I12.9 Hypertensive chronic kidney disease with stage 1 through stage 4 chronic kidney disease, or unspecified chronic kidney disease; E11.22 Type 2 diabetes mellitus with diabetic chronic kidney disease; N18.9 Chronic kidney disease, unspecified; E66.9 Obesity, unspecified; Z68.30 Body mass index [BMI] 30.0-30.9, adult; Z88.1 Allergy status to other antibiotic agents; Z91.018 Allergy to other foods; Z79.82 Long term (current) use of aspirin; Z79.899 Other long term (current) drug therapy
CPT/HCPCS: 36415; 70450; 71045; 80053; 84484; 85025; 93005; 99285-25

== ENCOUNTER 2022-05-01 17:21 | Emergency (ER) | payer MEDICARE, MEDICAID ==
[2022-05-01 18:49] LABS: ESTIMATED GFR 58 mL/min (>60)
[2022-05-01] MEDS ORDERED: Amoxicillin/Clavulanate K 875-125 MG Tab PO STA (19:50)
== END 2022-05-01 19:40 | disposition home or self-care (01) ==
LOC: FB.ED 17:21
DX: J18.9 Pneumonia, unspecified organism (principal); E78.00 Pure hypercholesterolemia, unspecified; I12.9 Hypertensive chronic kidney disease with stage 1 through stage 4 chronic kidney disease, or unspecified chronic kidney disease; E11.22 Type 2 diabetes mellitus with diabetic chronic kidney disease; N18.9 Chronic kidney disease, unspecified; E66.9 Obesity, unspecified; Z68.30 Body mass index [BMI] 30.0-30.9, adult; Z91.018 Allergy to other foods; Z88.1 Allergy status to other antibiotic agents; Z79.899 Other long term (current) drug therapy
CPT/HCPCS: 36415; 71045; 80053; 83880; 84484; 85025; 99283; A9270